=== PATIENT | male | born 1950 | race Caucasian/White ===

== ENCOUNTER 2016-11-10 09:44 | Emergency (ER) | payer BC ==
[~2016-11-10] VITALS: Ht 175.3 cm; Wt 91.6 kg
[~2016-11-10 09:44] MED LIST: ASPI81TA28 PO; CHOL100010 PO; CIPR-255 PO; CRG125 PO; CYCL10TA6 PO; ESOM1CAP34 PO; IBUP-1050 PO; METR-163 PO; NAPR220T40 PO; NRV/5 PO; NTRGSL/4 UT; OMEG10007 PO
[2016-11-10 09:48] VITALS: TEMP 36.6; Ht 175.3 cm; Wt 91.6 kg
[2016-11-10] MEDS ORDERED: OMEP20CA9 PO (10:35)
[2016-11-10] MEDS ORDERED: PSYL48.59 PO (10:35)
[2016-11-10] MEDS ORDERED: CHOL1TAB42 PO (10:35)
--- NOTE | 2016-11-10 10:54 | EMERGENCY ROOM VISIT NOTE ---
History Report prepared by Bunny: Radha Hernández Under the Supervision of: Dr. Brannon Gamez M.D. First contact with patient: 10:03 Chief Complaint: HIP PAIN Stated Complaint: PAIN-RIGHT HIP,BACK AND DOWN RIGHT LEG History of Present Illness The patient is a 66 year old male who presents to the Emergency Room with complaints of worsening intermittent right hip and groin pain starting 1 month ago. He rates his pain as a 9 or 10/10 in severity at worst. He presents to the ED today after his symptoms worsened in the past week. One month ago, he was sitting and bending down to put on shoes when he heard a crack from his lumbar spine. Since then he has been experiencing pain in his lower back. The pain sometimes radiates down his right leg to his ankle and sometimes to the right groin. He is unsure if the pain is hip related. The pain worsens with movement and walking. Resting in the supine position relieves his pain. Tylenol has not relieved his pain. He denies any weakness, numbness or incontinence. He has had a disc herniation in the past, but he states that the sensation is different from then. He did have steroid injections by Dr. Moreau 2 weeks ago, but the injections have not helped his current pain. He has had hernias in the past. He has a desk job at the [employer] Source of History: patient Onset: 1 month ago Position: pelvis (right hip) Symptom Intensity: 10/10 at worst Modifying Factors (Worsening): movement, other (walking) Associated Symptoms: + back pain (lower), No numbness, No weakness Note: Pt reports right leg pain. Pt denies incontinence. Review of Systems See HPI for pertinent positives & negatives. A total of 10 systems reviewed and were otherwise negative. Past Medical & Surgical Medical Problems: (1) Benign hypertension (2) BPH (benign prostatic hypertrophy) (3) eye surgery (4) Heart disease (5) Hyperlipidemia (6) knee surgery (7) Placement of stent (8) PVD (peripheral vascular disease) (9) Rhabdomyolysis (10) Tobacco abuse Surgical Problems: (1) S/P cardiac cath (2) S/P cataract surgery (3) Stented coronary artery Family History Cancer Diabetes mellitus FHx: gallbladder disease Heart disease Hypertension Lung disease Social History Smoking Status: Current Every Day Smoker Alcohol Use: occasionally Drug Use: none Marital Status: single Housing Status: lives with family Occupation Status: employed Current/Historical Medications Scheduled Amlodipine Besylate (Amlodipine Besylate), 5 MG PO DAILY Aspirin (Aspirin Ec), 81 MG PO DAILY Carvedilol (Carvedilol), 12.5 MG PO BID Cholecalciferol (Vitamin D), 5,000 UNIT PO DAILY Fish Oil (Jay-3), 1,200 MG PO BID Omeprazole (Prilosec), 20 MG PO DAILY Psyllium (Metamucil), 1 DOSE PO DAILY Scheduled PRN Tramadol (Ultram), 50-100 MG PO Q4H PRN for Pain Allergies Coded Allergies: Simvastatin (Verified Allergy, Mild, RHABDOMYOSIS, 04/11/16) Adhesives (Verified Allergy, Unknown, REDNESS,RASH, 04/11/16) HMG-CoA-R Inhibitors (Verified Allergy, Unknown, STATINS, 04/11/16) Niacin (Verified Allergy, Unknown, ANAPHYLAXIS, 04/11/16) Rofecoxib (Verified Adverse Reaction, Severe, GI BLEED, 04/11/16) Morphine (Verified Adverse Reaction, Mild, LIGHT-HEADED, 04/11/16) Codeine (Verified Adverse Reaction, Unknown, GI UPSET, 04/11/16) Physical Exam Vital Signs Date Time Temp Pulse Resp B/P Pulse Ox O2 Delivery O2 Flow Rate FiO2 11/10/16 14:54 71 16 138/69 92 Room Air 11/10/16 12:52 75 16 150/78 94 Room Air 11/10/16 11:40 73 16 150/80 94 Room Air 11/10/16 09:48 36.6 80 17 146/93 94 Room Air Physical Exam GENERAL: Patient is in no acute distress. HEENT: No acute trauma, normocephalic atraumatic, mucous membranes moist, no nasal congestion, no scleral icterus. NECK: No stridor, no adenopathy, no meningismus, trachea is midline. LUNGS: Clear to auscultation bilaterally, no wheeze, no rhonchi, breath sounds equal. HEART: Without murmurs gallops or rubs, regular rate and rhythm. ABDOMEN: Soft, nontender, bowel sounds positive, no hernias, no peritonitis. BACK: Tenderness to palpation of the right lateral lumbar muscles, no midline bony tenderness. GROIN: No obvious hernia by testing. EXTREMITIES: No edema or cellulitis to the right lower extremity. No adenopathy in the right groin. NEUROLOGIC: Oriented x 3, no acute motor or sensory deficits, no focal weakness. 2/4 patellar and Achilles reflexes bilaterally. SKIN: No rash, no jaundice, no diaphoresis. Medical Decision & Procedures ER Provider Diagnostic Interpretation: X-ray results as stated below per interpretation by me and the radiologist: RIGHT HIP UNILATERAL 2 VIEWS CLINICAL HISTORY: pain, right Right pain COMPARISON: None. DISCUSSION: Moderate degenerative change right hip. Minimal calcific trochanteric bursitis. No evidence for acetabular protrusion. There is no evidence for soft tissue swelling. IMPRESSION: Moderate degenerative change. Mild calcific trochanteric bursitis. No acute bony abnormality. Electronically signed by: Torsten Angulo M.D. 11/10/2016 11:37 AM Dictated Date/Time: 11/10/2016 11:36 AM LUMBAR SPINE 5 VIEWS HISTORY: Pain. Radiculopathy. pain, right side COMPARISON: None. FINDINGS: There is no fracture. No subluxation. Moderate degenerative disc change. No evidence for compression deformity. IMPRESSION: Moderate degenerative disc change. No acute bony abnormality. Electronically signed by: Torsten Angulo M.D. 11/10/2016 11:38 AM Dictated Date/Time: 11/10/2016 11:37 AM PELVIS 1 OR 2 VIEW ROUTINE CLINICAL HISTORY: right side pain pain COMPARISON: None. DISCUSSION: Moderate degenerative changes hips bilaterally. No evidence for acetabular protrusion. No acute bony abnormality. There is no evidence for soft tissue swelling. IMPRESSION: Moderate degenerative changes of the hips. No acute process. Electronically signed by: Torsten Angulo M.D. 11/10/2016 11:36 AM Dictated Date/Time: 11/10/2016 11:36 AM LUMBAR SPINE MRI HISTORY: Radiculopathy right back, leg and hip pain TECHNIQUE: Multiplanar multisequence MRI of the lumbar spine was performed without the use of contrast. COMPARISON: 02/04/2015 FINDINGS: For the purpose of the report the L5-S1 disc space will be located on axial image 27 of 30. Mild degenerative disc change throughout the entire lumbar region. Normal signal characteristics the vertebral bodies. 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 L1-L2: No significant central canal or neural foraminal narrowing. L2-L3: Minimal broad-based disc bulge with minimal impact anterior thecal sac. L3-L4: Mild broad-based disc bulge. Moderate narrowing of the neuroforamina bilaterally. Findings a slightly progressive compared to the prior exam. L4-L5: No significant central canal or neural foraminal narrowing. L5-S1: Central disc bulge with minimal impact anterior thecal sac. This is similar compared to the prior study. IMPRESSION: 1. Broad-based bulging disc L3-L4. Moderate narrowing of the neuroforamina bilaterally.. 2. This is slightly increased in prominence from the prior study. 3. Mild central disc bulge L5-S1 with a minimal broad-based disc bulge L2-L3. These findings are unchanged. 4. No major compromise of the spinal canal on this exam Electronically signed by: Torsten Angulo M.D. 11/10/2016 3:02 PM Dictated Date/Time: 11/10/2016 2:56 PM Laboratory Results 11/10/16 12:55 Red Blood Count 4.78, Mean Corpuscular Volume 88.9, Mean Corpuscular Hemoglobin 31.0, Mean Corpuscular Hemoglobin Concent 34.8, Mean Platelet Volume 10.7, Neutrophils (%) (Auto) 59.3, Lymphocytes (%) (Auto) 30.1, Monocytes (%) (Auto) 7.2, Eosinophils (%) (Auto) 2.9, Basophils (%) (Auto) 0.4, Neutrophils # (Auto) 5.70, Lymphocytes # (Auto) 2.90, Monocytes # (Auto) 0.69, Eosinophils # (Auto) 0.28, Basophils # (Auto) 0.04 11/10/16 12:55 Test 11/10/16 12:55 White Blood Count 9.62 K/uL (4.8-10.8) Red Blood Count 4.78 M/uL (4.7-6.1) Hemoglobin 14.8 g/dL (14.0-18.0) Hematocrit 42.5 % (42-52) Mean Corpuscular Volume 88.9 fL (80-100) Mean Corpuscular Hemoglobin 31.0 pg (25-34) Mean Corpuscular Hemoglobin Concent 34.8 g/dl (32-36) Platelet Count 232 K/uL (130-400) Mean Platelet Volume 10.7 fL (7.4-10.4) Neutrophils (%) (Auto) 59.3 % Lymphocytes (%) (Auto) 30.1 % Monocytes (%) (Auto) 7.2 % Eosinophils (%) (Auto) 2.9 % Basophils (%) (Auto) 0.4 % Neutrophils # (Auto) 5.70 K/uL (1.4-6.5) Lymphocytes # (Auto) 2.90 K/uL (1.2-3.4) Monocytes # (Auto) 0.69 K/uL (0.11-0.59) Eosinophils # (Auto) 0.28 K/uL (0-0.5) Basophils # (Auto) 0.04 K/uL (0-0.2) RDW Standard Deviation 44.6 fL (36.4-46.3) RDW Coefficient of Variation 13.6 % (11.5-14.5) Immature Granulocyte % (Auto) 0.1 % Immature Granulocyte # (Auto) 0.01 K/uL (0.00-0.02) Anion Gap 5.0 mmol/L (3-11) Est Creatinine Clear Calc Drug Dose 111.3 ml/min Estimated GFR () 112.0 Estimated GFR (Non- 96.7 BUN/Creatinine Ratio 15.5 (10-20) Calcium Level 9.7 mg/dl (8.5-10.1) Laboratory results reviewed by me. Medications Administered Medications (Trade) Dose Ordered Sig/Olena Route Start Time Stop Time Status Last Admin Dose Admin Ondansetron HCl (Zofran Inj) 4 mg NOW STAT IV 11/10/16 12:20 11/10/16 12:24 DC 11/10/16 12:54 4 MG Hydromorphone HCl (Dilaudid Inj) 0.5 mg NOW STAT IV 11/10/16 12:20 11/10/16 12:24 DC 11/10/16 12:54 0.5 MG Acetaminophen (Tylenol Tab) 1,000 mg NOW STAT PO 11/10/16 12:20 11/10/16 12:24 DC 11/10/16 12:55 1,000 MG ED Course 1005: At this time the patient was evaluated by the medical student. The students findings were discussed with me. We discussed a possible treatment plan and differential diagnoses for the patient. 1032: The patient was evaluated in room B4B. A complete history and physical exam was performed. 1216: I reevaluated the patient. He is in increased pain currently. He will be sent for an MRI. 1220: Acetaminophen 1000 mg PO, Dilaudid Inj 0.5 mg IV, Zofran Inj 4 mg IV. 1511: I reevaluated the patient. I discussed results and discharge instructions : he verbalized understanding and agreement. The patient is ready for discharge. 1515: I discussed the patient's case with Dr. Moreau, [facility]. He will see the patient on Sunday. He is agreeable to giving the patient tramadol. Medical Decision Differential diagnoses: nerve impingement, musculoskeletal pain, sciatica, arthritis, fracture, herniated lumbar disc. There is no leukocytosis or concerning anemia. No significant electrolyte abnormality or kidney failure. Films of the lumbar spine, pelvis and right hip were done, some arthritis was seen, no acute fractures. The patient initially was not in need of pain medication. He began having severe pain when he returned from x-ray. He received oral Tylenol. He required an IV, IV Dilaudid and IV Zofran were given. He was more comfortable after this medication regimen. Because of the severe pain, because of the radiating symptoms and escalating symptoms, an MRI of the lumbar spine was done. There was disc disease noted that was thought moderate in severity, there was no obvious large disc herniation requiring emergent surgical correction. I spoke with the patient's orthopedist, Dr. Moreau. The patient will be followed in the office in a few days, he may require repeat injections. The patient is being discharged on tramadol, he can continue Tylenol for pain. If things continue to worsen, he should report back to the ER. [place] Drug Monitoring Program Search Results: patient reviewed within database, no issues identified Consults Time Called: 1509 Consulting Physician: Dr. Moreau [facility] Returned Call: 1515 I discussed the patient's case with him. He will see the patient on Sunday. He is agreeable to giving the patient tramadol. Impression Primary Impression: Radicular pain of right lower back Additional Impression: Sciatica Scribe Attestation The scribe's documentation has been prepared under my direction and personally reviewed by me in its entirety. I confirm that the note above accurately reflects all work, treatment, procedures, and medical decision making performed by me. Departure Information Dispostion Home / Self-Care Prescriptions Tramadol (Ultram) 50 Mg Tab 50-100 MG PO Q4H Y for Pain, #25 TAB Prov: Brannon Gamez M.D. 11/10/16 Referrals RV. Meléndez MD (PCP) Forms HOME CARE DOCUMENTATION FORM, IMPORTANT VISIT INFORMATION Patient Instructions My [facility] Additional Instructions tramadol 1-2 tab every 4 hours for severe pain may use tylenol as before call Dr. Moreau on Sunday for an appt return for worsening symptoms or uncontrolled pain Problem Qualifiers
--- NOTE | 2016-11-10 11:38 | DIAGNOSTIC IMAGING REPORT ---
PELVIS 1 OR 2 VIEW ROUTINE CLINICAL HISTORY: right side pain pain COMPARISON: None. DISCUSSION: Moderate degenerative changes hips bilaterally. No evidence for acetabular protrusion. No acute bony abnormality. There is no evidence for soft tissue swelling. IMPRESSION: Moderate degenerative changes of the hips. No acute process. Electronically signed by: Torsten Angulo M.D. 11/10/2016 11:36 AM Dictated Date/Time: 11/10/2016 11:36 AM
--- NOTE | 2016-11-10 11:39 | DIAGNOSTIC IMAGING REPORT ---
RIGHT HIP UNILATERAL 2 VIEWS CLINICAL HISTORY: pain, right Right pain COMPARISON: None. DISCUSSION: Moderate degenerative change right hip. Minimal calcific trochanteric bursitis. No evidence for acetabular protrusion. There is no evidence for soft tissue swelling. IMPRESSION: Moderate degenerative change. Mild calcific trochanteric bursitis. No acute bony abnormality. Electronically signed by: Torsten Angulo M.D. 11/10/2016 11:37 AM Dictated Date/Time: 11/10/2016 11:36 AM
--- NOTE | 2016-11-10 11:40 | DIAGNOSTIC IMAGING REPORT ---
LUMBAR SPINE 5 VIEWS HISTORY: Pain. Radiculopathy. pain, right side COMPARISON: None. FINDINGS: There is no fracture. No subluxation. Moderate degenerative disc change. No evidence for compression deformity. IMPRESSION: Moderate degenerative disc change. No acute bony abnormality. Electronically signed by: Torsten Angulo M.D. 11/10/2016 11:38 AM Dictated Date/Time: 11/10/2016 11:37 AM
[2016-11-10] MEDS ORDERED: ONDANSETRON INJ 2 MG/ML 2 ML VIAL IV STA (12:20)
[2016-11-10] MEDS ORDERED: ACETAMINOPHEN 500 MG TAB PO STA (12:20)
[2016-11-10] MEDS ORDERED: HYDROmorphone INJ 2 MG/ML SYR/VIAL IV STA (12:20)
[2016-11-10] MEDS ORDERED: HYDROmorphone INJ 0.5 MG/0.5 ML SYR ONE (12:47)
[2016-11-10 13:07] LABS: HEMATOCRIT 42.5 % (42-52); MEAN CELL VOLUME 88.9 fL (80-100); MEAN CORPUSCULAR HGB CONC 34.8 g/dl (32-36); MEAN PLATELET VOLUME 10.7 fL (7.4-10.4); PLATELET COUNT 232 K/uL (130-400); RED BLOOD COUNT 4.78 M/uL (4.7-6.1); WHITE BLOOD COUNT 9.62 K/uL (4.8-10.8)
[2016-11-10 13:25] LABS: BUN/CREATININE RATIO 15.5 (10-20); CALCIUM 9.7 mg/dl (8.5-10.1); CREATININE 0.73 mg/dl (0.60-1.40)
[2016-11-10 13:39] LABS: BASO % 0.4 %; BASO ABS # 0.04 K/uL (0-0.2); COMPLETE YES; EOS % 2.9 %; IG% 0.1 %; LYMPH % 30.1 %; MONO % 7.2 %; NEUT % 59.3 %
--- NOTE | 2016-11-10 15:04 | DIAGNOSTIC IMAGING REPORT ---
LUMBAR SPINE MRI HISTORY: Radiculopathy right back, leg and hip pain TECHNIQUE: Multiplanar multisequence MRI of the lumbar spine was performed without the use of contrast. COMPARISON: 02/04/2015 FINDINGS: For the purpose of the report the L5-S1 disc space will be located on axial image 27 of 30. Mild degenerative disc change throughout the entire lumbar region. Normal signal characteristics the vertebral bodies. 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 L1-L2: No significant central canal or neural foraminal narrowing. L2-L3: Minimal broad-based disc bulge with minimal impact anterior thecal sac. L3-L4: Mild broad-based disc bulge. Moderate narrowing of the neuroforamina bilaterally. Findings a slightly progressive compared to the prior exam. L4-L5: No significant central canal or neural foraminal narrowing. L5-S1: Central disc bulge with minimal impact anterior thecal sac. This is similar compared to the prior study. IMPRESSION: 1. Broad-based bulging disc L3-L4. Moderate narrowing of the neuroforamina bilaterally.. 2. This is slightly increased in prominence from the prior study. 3. Mild central disc bulge L5-S1 with a minimal broad-based disc bulge L2-L3. These findings are unchanged. 4. No major compromise of the spinal canal on this exam Electronically signed by: Torsten Angulo M.D. 11/10/2016 3:02 PM Dictated Date/Time: 11/10/2016 2:56 PM
[2016-11-10] MEDS ORDERED: TRAM-10 PO (15:22)
[2016-11-10 15:45] VITALS: BP 157/90; PULSE 77; O2SAT 92
[2017-06-11] MEDS ORDERED: ANT25 PO (10:56)
[2017-07-11] MEDS ORDERED: NTRGSL/4 UT (16:10)
[2017-07-11] MEDS ORDERED: FLUT0.15 INTNAS (16:10)
[2017-07-11] MEDS ORDERED: IBUP-1050 PO (16:10)
[2017-07-11] MEDS ORDERED: ACET-1256 PO (16:10)
[2017-07-11] MEDS ORDERED: NAPR1TAB9 PO (16:10)
[2017-07-11] MEDS ORDERED: MULT-506 PO (16:10)
[2017-07-11] MEDS ORDERED: ASPI-391 PO (16:10)
== END 2016-11-10 15:46 | disposition home or self-care (01) ==
LOC: C.EDB 09:46
DX: M54.16 Radiculopathy, lumbar region (principal); M54.41 Lumbago with sciatica, right side; I10 Essential (primary) hypertension; E78.5 Hyperlipidemia, unspecified; I51.9 Heart disease, unspecified; I73.9 Peripheral vascular disease, unspecified; N40.0 Benign prostatic hyperplasia without lower urinary tract symptoms; F17.200 Nicotine dependence, unspecified, uncomplicated; Z98.61 Coronary angioplasty status; Z98.890 Other specified postprocedural states; Z79.82 Long term (current) use of aspirin; Z79.899 Other long term (current) drug therapy; Z88.5 Allergy status to narcotic agent; Z88.8 Allergy status to other drugs, medicaments and biological substances; Z91.09 Other allergy status, other than to drugs and biological substances; Z80.9 Family history of malignant neoplasm, unspecified; Z83.3 Family history of diabetes mellitus; Z83.79 Family history of other diseases of the digestive system; Z82.49 Family history of ischemic heart disease and other diseases of the circulatory system

== ENCOUNTER → 2017-05-18 | Outpatient (CLI) | payer BC ==
[~2017-05-18] MED LIST changes: -CHOL100010 PO; +CHOL1TAB42 PO; -CIPR-255 PO; -CYCL10TA6 PO; -ESOM1CAP34 PO; -IBUP-1050 PO; -METR-163 PO; -NAPR220T40 PO; -NTRGSL/4 UT; +OMEP20CA9 PO; +PSYL48.59 PO
[2017-05-18 16:41] LABS: BASO % 0.4 %; BASO ABS # 0.03 K/uL (0-0.2); COMPLETE YES; EOS % 4.1 %; IG% 0.2 %; LYMPH % 36.5 %; LYMPH ABS # 3.11 K/uL (1.2-3.4); MEAN CELL VOLUME 89.6 fL (80-100); MEAN CORPUSCULAR HEMOGLOBIN 31.3 pg (25-34); MEAN CORPUSCULAR HGB CONC 34.9 g/dl (32-36); MEAN PLATELET VOLUME 10.7 fL (7.4-10.4); MONO % 7.9 %; NEUT % 50.9 %; PLATELET COUNT 255 K/uL (130-400); WHITE BLOOD COUNT 8.51 K/uL (4.8-10.8)
[2017-05-18 17:01] LABS: BLOOD UREA NITROGEN 14 mg/dl (7-18); BUN/CREATININE RATIO 18.5 (10-20); CALCIUM 9.8 mg/dl (8.5-10.1); CARBON DIOXIDE 28 mmol/L (21-32); CHLORIDE 105 mmol/L (98-107); CREATININE 0.78 mg/dl (0.60-1.40); GLUCOSE 115 mg/dl (70-99); POTASSIUM 3.8 mmol/L (3.5-5.1); SODIUM 138 mmol/L (136-145)
[2017-05-18 17:07] LABS: ALB/GLOB RATIO 0.9 (0.9-2); ALKALINE PHOSPHATASE 90 U/L (45-117); ALT/SGPT 39 U/L (12-78); AST/SGOT 22 U/L (15-37)
== END | disposition home or self-care (01) ==
LOC: C.LAB1850 15:36
PROVIDERS: ATTEND Internal Medicine
DX: R19.7 Diarrhea, unspecified (principal)

== ENCOUNTER → 2017-05-29 | Outpatient (CLI) | payer BC ==
--- NOTE | 2017-05-29 16:09 | DIAGNOSTIC IMAGING REPORT ---
Left axillary ultrasound CLINICAL HISTORY: M79.89 Left axillary swelling Left [id number] COMPARISON STUDY: None. FINDINGS: No fluid collections or masses identified within the left axilla. There are 2 left axillary lymph nodes with the largest measuring 2.1 x 0.9 cm. This images a thin cortex and normal fatty hilum. IMPRESSION: No significant abnormality within the left axilla. There are 2 left axillary lymph nodes which do not be sonographic criteria for pathology. Electronically signed by: Steve Emanuel M.D. 05/29/2017 4:07 PM Dictated Date/Time: 05/29/2017 4:06 PM
== END | disposition home or self-care (01) ==
LOC: C.ULTR 15:36
PROVIDERS: ATTEND Internal Medicine
DX: M79.89 Other specified soft tissue disorders (principal)

== ENCOUNTER → 2017-07-12 | Outpatient (CLI) | payer BC ==
[~2017-07-12] MED LIST changes: +ACET-1256 PO; +ASPI-391 PO; +FLUT0.15 INTNAS; +IBUP-1050 PO; +MULT-506 PO; +NAPR1TAB9 PO; +NTRGSL/4 UT; -PSYL48.59 PO
--- NOTE | 2017-07-12 17:04 | DIAGNOSTIC IMAGING REPORT ---
TWO VIEW CHEST CLINICAL HISTORY: Atypical chest pain. FINDINGS: PA and lateral chest radiographs are compared to study dated 09/14/15. The cardiomediastinal silhouette is unremarkable. There is atherosclerotic calcification of the thoracic aorta. Chronic interstitial thickening is similar to previous. The lungs and pleural spaces are clear. There is no pneumothorax. The skeletal structures are osteopenic. Degenerative changes noted throughout the thoracic spine. IMPRESSION: No acute cardiopulmonary abnormality. Electronically signed by: Brannon Lugo M.D. 07/12/2017 5:03 PM Dictated Date/Time: 07/12/2017 5:02 PM
== END | disposition home or self-care (01) ==
LOC: C.RAD1850 16:41
PROVIDERS: ATTEND Internal Medicine
DX: I25.10 Atherosclerotic heart disease of native coronary artery without angina pectoris (principal); R07.89 Other chest pain

== ENCOUNTER 2017-07-26 05:05 | Day surgery (SDC) | payer BC ==
[2017-07-11 16:12] VITALS: BMI 29.0
[~2017-07-26] VITALS: Ht 175.3 cm; Wt 91.8 kg
[~2017-07-26 05:05] MED LIST changes: +FLUT0.15; -FLUT0.15 INTNAS
[2017-07-26 05:35] VITALS: BP 143/77; PULSE 74; TEMP 36.7; O2SAT 95; Ht 175.3 cm; Wt 91.8 kg
[2017-07-26] MEDS ORDERED: CEFAZOLIN 2000MG IV PUSH 10 ML IV SCH (06:00)
[2017-07-26] MEDS ORDERED: LACTATED RINGER'S 1000ML 1,000 ML IV SCH ×2 (06:00)
[2017-07-26] MEDS ORDERED: MIDAZOLAM HCL 1 MG/ML 2ML VIAL ONE (06:49)
[2017-07-26] MEDS ORDERED: FENTANYL CITRATE INJ 50 MCG/1 ML 2 ML VIAL ONE (06:49)
--- NOTE | 2017-07-26 06:53 | History & Physical Bridge Note ---
H&P Re-Evaluation Bridge Note: I have examined the patient, reviewed the History & Physical and in the interval since the performance of the History & Physical I have noted the following changes of clinical significance: No changes noted. no changes but patient has decided he wants both the umbilical and inguinal hernias repaired as well as sebaceous cyst on his chest wall excised. will proceed with all 3.
[2017-07-26] MEDS ORDERED: BUPIVACAINE/EPINEPHRINE 0.5% MPF 1:200,000 30 ML VIAL ONE (06:57)
[2017-07-26] MEDS ORDERED: ONDANSETRON INJ 2 MG/ML 2 ML VIAL IV PRN ×2 (07:15→09:00)
[2017-07-26] MEDS ORDERED: ATROPINE SULFATE 0.1 MG/ML 5ML SYR IV PRN (07:15)
[2017-07-26] MEDS ORDERED: PROPOFOL IV EMULSION 10 MG/ML 20 ML VIAL IV ONE (07:33)
[2017-07-26] MEDS ORDERED: EpHEDrine SULFATE 50MG/5ML SYR ONE (07:33)
[2017-07-26] MEDS ORDERED: LIDOCAINE HCL 2% 2 ML VIAL (20MG/ML) ONE (07:33)
[2017-07-26] MEDS ORDERED: DEXAMETHASONE SOD INJ 4 MG/ML VIAL ONE (07:33)
[2017-07-26] MEDS ORDERED: ONDANSETRON INJ 2 MG/ML 2 ML VIAL ONE (07:33)
[2017-07-26] MEDS ORDERED: VASOPRESSIN 20 UNIT/ML VIAL ONE (07:45)
[2017-07-26] MEDS ORDERED: SODIUM CHLORIDE 0.9% 1000ML 1,000 ML IV SCH (08:57)
[2017-07-26] MEDS ORDERED: HYDR-5688 PO (08:59)
[2017-07-26] MEDS ORDERED: HYDROCODONE/ACETAMIN 5/325MG TAB PO PRN ×2 (09:00)
--- NOTE | 2017-07-26 09:03 | Discharge Instructions ---
Discharge Instructions Date of Service Jul 26, 2017. Admission Reason for Admission: Left Inguinal Hernia, Umbilical Hernia Discharge Discharge Diagnosis / Problem: Left Inguinal Hernia, Umbilical Hernia Discharge Goals Goal(s): Decrease discomfort, Improve function Activity Recommendations Activity Limitations: as noted below Lifting Limitations: no more than 10 pounds Exercise/Sports Limitations: until after follow-up appointment May Resume Sexual Activity: after follow-up appointment Shower/Bathe: tomorrow Driving or Machine Use: resume 1 day after discharge . Instructions / Follow-Up Instructions / Follow-Up You have sutures that will need to be removed from the incision on your chest. Please call the office to schedule an appointment to have these sutures removed in 2 weeks. Please call the office with any questions or concerns at [phone]. Current Hospital Diet Patient's current hospital diet: Discharge Diet Recommended Diet: Regular Diet Procedures Procedures Performed: Open Left Inguinal Hernia Repair with Mesh, Open Umbilical Hernia Repair, Removal of Chest Wall Cyst Pending Studies Studies pending at discharge: yes List of pending studies: Pathology report. Medical Emergencies . Who to Call and When: Medical Emergencies: If at any time you feel your situation is an emergency, please call 911 immediately. . Non-Emergent Contact Non-Emergency issues call your: Primary Care Provider, Surgeon Call Non-Emergent contact if: temperature is above 101.5, your pain is not controlled, wound has increased drainage, wound has increased redness . "Provider Documentation" section prepared by Sharron King. . VTE Core Measure Inpt VTE Proph given/why not?: SCD's [place] Drug Monitoring Program Search Results: patient reviewed within database, no issues identified
[2017-07-26] MEDS ORDERED: ONDA4TAB65 PO (09:05)
--- NOTE | 2017-07-26 09:05 | [facility] Operative Report ---
Operative Report Operative Date Jul 26, 2017. Pre-Operative Diagnosis Left Inguinal Hernia, Umbilical Hernia, Chest Wall Cyst Post-Operative Diagnosis Same as preop Procedure(s) Performed Open Left Inguinal Hernia Repair with Mesh, Open Umbilical Hernia Repair, Removal of Chest Wall Cyst Surgeon Dr. Asif Client Advocate Surgeon(s) Sharron King PA-C Estimated Blood Loss 10 ml Findings direct and indirect LIH; 1 cm umbilical hernia;sebaceous cyst of chest wall. Specimens A. Chest Wall Cyst Anesthesia LMA Complication(s) None Disposition Recovery Room / PACU Description of Procedure After informed consent was obtained the patient was taken to the operating room and placed in the supine position. After successful placement of the laryngeal mask airway the left groin was shaved and the groin, abdomen, and lower chest wall were all sterilely prepped and draped. We began with the simple chest wall cyst. I used a 15 blade scalpel to make an elliptical incision around it. Electrocautery was used to take down the soft tissue around the cyst. I was able to come underneath it and remove it in one large piece without rupturing it. Wound was irrigated and closed using 3-0 Prolene in simple interrupted fashion. Sterile dressing was applied Attention then turned to the umbilical hernia. I made an infraumbilical curvilinear incision and carried this down through the soft tissue to the fascia. I used a [place] clamp to come above the umbilicus and take down the umbilical stalk with electrocautery. This revealed a small approximate 1-1.5 cm defect with some preperitoneal fat in it. We were able to excise and reduced the preperitoneal fat. Because of its small size I opted to not use mesh. I used #1 Ethibond in interrupted [id number] fashion to primarily close the defect with minimal tension. The Wound was then thoroughly irrigated. The umbilicus was reattached using 0 Vicryl. We then closed soft tissue using 3-0 Vicryl and skin with 4-0 Monocryl. Marcaine was injected around the area and skin glue used as a dressing Finally attention turned to the left inguinal hernia. I made an inguinal incision with a fresh blade and carried this down through the soft tissue to the external oblique aponeurosis which I skeletonized. I used a new scalpel to make a small incision and Metzenbaum scissors to extend this through the external ring as well as for several centimeters proximally. Once in the inguinal canal I was able to use blunt finger dissection to delineate the cord and cord structures. I elevated them with a [place] clamp and gently came around and teased the cord structures off the pubic bone using a blunt finger. A [place] drain was placed around it. There was an obvious direct defect which was easy to reduce. When we inspected the cord and cord structures we also found a small hernia sac with some fat within it. Once we skeletonized this back to its neck where with dunk it into the abdominal cavity. I used 0 Ethibond to primarily close the defect just to keep the hernia sac in place until we placed the mesh. A piece of keyhole polypropylene mesh was used as an onlay. It was secured distally to Semaj's ligament. It was secured laterally along the shelving portion of Poupart ligament and medially along the midline musculature. The "arms" of the mesh were wrapped around behind the cord and cord structures and again secured to underlying muscle using 0 Ethibond. At the end of the procedure the mesh was tension free and did not appear to be impinging on the cord structures. There was adequate hemostasis. We injected some Marcaine around the edges of the mesh for postoperative analgesia. A thorough irrigation was performed. The external oblique aponeurosis was closed using 2-0 Vicryl in a running fashion. Soft tissue was irrigated and closed using 3-0 Vicryl for the deep layers and 4-0 Monocryl for the skin. Some additional Marcaine was also injected around the skin. Dermabond glue was used as a dressing the patient was awaken x-rayed and transferred recovery in stable condition My physician's clinical assistant was present throughout the entire case. She assisted with exposure for all 3 components of the procedure. She helped with wound closure with all 3 components prepping of the patient as well as dressing placement. I attest to the content of the Intraoperative Record and any orders documented therein. Any exceptions are noted below.
[2017-07-26] MEDS: FENTANYL CITRATE INJ 50 MCG/1 ML 2 ML VIAL IV PRN ×8 (09:15→09:54)
[2017-07-26] MEDS ORDERED: HYDROCODONE/ACETAMIN 5/325MG TAB ONE (09:40)
[2017-07-26 10:20] VITALS: BP 132/66; PULSE 85; TEMP 36.3; O2SAT 94
--- NOTE | 2017-07-26 10:25 | Anesthesiology Progress Note ---
Anesthesia Post Op Note Date & Time Jul 26, 2017 at 10:25 Vital Signs Pain Intensity: 2 Vital Signs Past 12 Hours Date Time Temp Pulse Resp B/P (MAP) Pulse Ox O2 Delivery O2 Flow Rate FiO2 07/26/17 10:10 81 16 125/74 93 Nasal Cannula 07/26/17 10:05 81 20 124/69 93 Nasal Cannula 07/26/17 09:55 36.7 82 20 133/74 94 Nasal Cannula 2 07/26/17 09:45 82 20 133/74 94 Nasal Cannula 2 07/26/17 09:35 81 18 130/64 94 Nasal Cannula 2 07/26/17 09:25 80 19 130/69 95 Nasal Cannula 2 07/26/17 09:15 74 19 140/72 98 Oxymask 10 07/26/17 09:05 83 12 126/93 98 Oxymask 10 07/26/17 08:57 37.1 74 16 147/74 97 Oxymask 10 07/26/17 05:35 36.7 74 20 143/77 (99) 95 Room Air Notes Mental Status: alert / awake / arousable, participated in evaluation Pt Amnestic to Procedure: Yes Nausea / Vomiting: adequately controlled Pain: adequately controlled Airway Patency, RR, SpO2: stable & adequate BP & HR: stable & adequate Hydration State: stable & adequate Anesthetic Complications: no major complications apparent
[2017-07-26 10:50] VITALS: BP 133/64; PULSE 85; O2SAT 93
[2017-07-26 11:30] VITALS: BP 139/84; PULSE 84; TEMP 36.4; O2SAT 94
[2017-07-26] MEDS ORDERED: ONDA4TAB9 PO (18:45)
== END 2017-07-26 11:51 | disposition home or self-care (01) ==
LOC: C.ACU 05:05
PROVIDERS: ATTEND Surgery
DX: K40.90 Unilateral inguinal hernia, without obstruction or gangrene, not specified as recurrent (principal); K42.9 Umbilical hernia without obstruction or gangrene; L72.0 Epidermal cyst; I25.10 Atherosclerotic heart disease of native coronary artery without angina pectoris; I25.2 Old myocardial infarction; I10 Essential (primary) hypertension; E78.5 Hyperlipidemia, unspecified; I07.1 Rheumatic tricuspid insufficiency; K21.9 Gastro-esophageal reflux disease without esophagitis; D35.02 Benign neoplasm of left adrenal gland; N40.1 Benign prostatic hyperplasia with lower urinary tract symptoms; N13.8 Other obstructive and reflux uropathy; M51.26 Other intervertebral disc displacement, lumbar region; Z95.5 Presence of coronary angioplasty implant and graft; I67.9 Cerebrovascular disease, unspecified; K52.9 Noninfective gastroenteritis and colitis, unspecified; I70.219 Atherosclerosis of native arteries of extremities with intermittent claudication, unspecified extremity; R26.9 Unspecified abnormalities of gait and mobility; L71.9 Rosacea, unspecified; E55.9 Vitamin D deficiency, unspecified; F17.200 Nicotine dependence, unspecified, uncomplicated; Z79.82 Long term (current) use of aspirin; Z79.899 Other long term (current) drug therapy

== ENCOUNTER 2017-07-29 17:58 | Emergency (ER) | payer BC ==
[~2017-07-29] VITALS: Ht 175.3 cm; Wt 88.6 kg
[~2017-07-29 17:58] MED LIST changes: +HYDR-5688 PO; +ONDA4TAB65 PO; +ONDA4TAB9 PO
[2017-07-29 18:03] VITALS: TEMP 37.2; Ht 175.3 cm; Wt 88.6 kg
[2017-07-29] MEDS ORDERED: CEFTRIAXONE SOD INJ 1 GM ADDVIAL IV STA (18:26)
--- NOTE | 2017-07-29 18:30 | EMERGENCY ROOM VISIT NOTE ---
History Report prepared by Bunny: Raoul Loza Under the Supervision of: Dr. Solis Morgan M.D. First contact with patient: 18:06 Chief Complaint: WOUND INFECTION Stated Complaint: REDNESS INFECTION UNBILICUS LEFT History of Present Illness The patient is a 67 year old male who presents to the Emergency Room with complaints of a constant wound infection beginning tonight. The patient states that he had left inguinal hernia and umbilical hernia surgery performed by Dr. Asfi three days ago. He notes that the incision from his umbilical hernia surgery is beginning to look infected. He reports that he has noticed that the region around his belly button has been getting red and tender. The patient states that the nursing staff said that the wound was also oozing when he first came into the emergency department. He also complains of feeling hot, chills, pressure along the inside of his right leg, numbness over the surgery site, and dizziness. The patient states that although he felt hot today, he did not have a temperature when he checked earlier. He notes that he has been taking hydrocodone for pain, and that the medication has been making him dizzy. Pt denies LOC, headache, diaphoresis, visual changes, neck pain, chest pain, breathing difficulties, nausea, vomiting, abdominal pain, back pain, melena, hematochezia, urinary symptoms, weakness, lymphadenopathy, rash, leg swelling or other complaints. Source of History: patient Onset: tonight Position: other (umbilicus) Quality: other (infection, red, tender, and oozing) Timing: constant Associated Symptoms: + chills Note: He also complains of feeling hot, pressure along the inside of his right leg, numbness over the surgery site, and dizziness. Review of Systems See HPI for pertinent positives and negatives. A total of ten systems were reviewed and were otherwise negative. Past Medical & Surgical Medical Problems: (1) Benign hypertension (2) BPH (benign prostatic hypertrophy) (3) eye surgery (4) Heart disease (5) Hyperlipidemia (6) knee surgery (7) Left inguinal hernia (8) Placement of stent (9) PVD (peripheral vascular disease) (10) Rhabdomyolysis (11) Tobacco abuse (12) Umbilical hernia Surgical Problems: (1) S/P cardiac cath (2) S/P cataract surgery (3) Stented coronary artery Family History Cancer Diabetes mellitus FHx: gallbladder disease Heart disease Hypertension Lung disease Social History Smoking Status: Current Every Day Smoker Alcohol Use: occasionally Drug Use: none Marital Status: single Housing Status: lives with family Occupation Status: employed Current/Historical Medications Scheduled Acetaminophen (Tylenol), 1,000 MG PO PRN Amlodipine Besylate (Amlodipine Besylate), 5 MG PO HS Amlodipine Besylate (Norvasc), 1 TAB PO HS Aspirin (Aspirin Ec), 81 MG PO DAILY Cmpzlyg-Dwzzgtqxvcyxu-Vxlggvet (Excedrin Extra Strength), 2 TAB PO PRN Carvedilol (Carvedilol), 12.5 MG PO BID Cephalexin Monohydrate (Keflex), 500 MG PO QID Cholecalciferol (Vitamin D), 5,000 UNIT PO QAM Fish Oil ([place]-3), 1,200 MG PO BID Fluticasone Propionate (Nasal) (Flonase Allergy Relief), 2 SPRAYS NA DAILY Ibuprofen (Advil), 400 MG PO PRN Multivitamin (Multivitamin), 1 TAB PO QPM Naproxen (Aleve), 220-440 MG PO PRN Nitroglycerin (Nitrostat), 0.4 MG UT PRN Omeprazole (Prilosec), 20 MG PO QAM Sulfa/Trimethoprim (Bactrim Ds 800MG/160MG), 1 TAB PO BID Scheduled PRN Ondansetron (Ondansetron HCl), 1 TAB PO Q6H PRN for Nausea Allergies Coded Allergies: Simvastatin (Verified Allergy, Mild, RHABDOMOLYSIS, 07/29/17) TIFFANIE Inhibitors (Verified Allergy, Unknown, UNKNOWN, 07/29/17) Adhesives (Verified Allergy, Unknown, REDNESS,RASH, 07/29/17) HMG-CoA-R Inhibitors (Verified Allergy, Unknown, STATINS-RHABOMYOSIS, ) Meclizine (Verified Allergy, Unknown, UNKNOWN, 07/29/17) Niacin (Verified Allergy, Unknown, ANAPHYLAXIS, 07/29/17) Pantoprazole (Verified Allergy, Unknown, TOOK TOO MUCH-UNKNOWN EFFECT, ) Solifenacin (Verified Allergy, Unknown, DIDN'T WORK, 07/29/17) Rofecoxib (Verified Adverse Reaction, Severe, GI BLEED, 07/29/17) Morphine (Verified Adverse Reaction, Mild, LIGHT-HEADED, 07/29/17) Codeine (Verified Adverse Reaction, Unknown, GI UPSET, 07/29/17) Physical Exam Vital Signs Date Time Temp Pulse Resp B/P (MAP) Pulse Ox O2 Delivery O2 Flow Rate FiO2 07/29/17 19:45 65 20 134/72 94 Room Air 07/29/17 18:03 37.2 75 20 173/79 94 Room Air Physical Exam GENERAL: Awake, alert, well-appearing, in no distress HENT: Normocephalic, atraumatic. Oropharynx unremarkable. EYES: Normal conjunctiva. Sclera non-icteric. NECK: Supple. No nuchal rigidity. FROM. No JVD. RESPIRATORY: Clear to auscultation. CARDIAC: Regular rate, normal rhythm. Extremities warm and well perfused. Pulses equal. ABDOMEN: Soft, non-distended. No rebound or guarding. No masses. Umbilical surgical site, redness around incision site, moist in appearances, no dehiscence , erythema surrounding umbilicus that extends superiorly and to the right. Chest incision is clean, dry and intact, no sign of infection. Left inguinal incision is clean, dry, and intact, no redness. No generalized abdominal tenderness, tenderness only isolated to umbilical incision. RECTAL: Deferred. MUSCULOSKELETAL: Chest examination reveals no tenderness. There is no CVA tenderness to palpation. No joint edema. LOWER EXTREMITIES: Calves are equal size bilaterally and non-tender. No edema. No discoloration. NEURO: Normal sensorium. No sensory or motor deficits noted. SKIN: No rash or jaundice noted. Medical Decision & Procedures Laboratory Results 07/29/17 18:31 Red Blood Count 5.11, Mean Corpuscular Volume 92.6, Mean Corpuscular Hemoglobin 32.1, Mean Corpuscular Hemoglobin Concent 34.7, Mean Platelet Volume 11.3, Neutrophils (%) (Auto) 53.5, Lymphocytes (%) (Auto) 35.7, Monocytes (%) (Auto) 7.7, Eosinophils (%) (Auto) 2.3, Basophils (%) (Auto) 0.4, Neutrophils # (Auto) 4.57, Lymphocytes # (Auto) 3.05, Monocytes # (Auto) 0.66, Eosinophils # (Auto) 0.20, Basophils # (Auto) 0.03 07/29/17 19:00 Test 07/29/17 18:31 07/29/17 19:00 White Blood Count 8.54 K/uL (4.8-10.8) Red Blood Count 5.11 M/uL (4.7-6.1) Hemoglobin 16.4 g/dL (14.0-18.0) Hematocrit 47.3 % (42-52) Mean Corpuscular Volume 92.6 fL (80-100) Mean Corpuscular Hemoglobin 32.1 pg (25-34) Mean Corpuscular Hemoglobin Concent 34.7 g/dl (32-36) Platelet Count 269 K/uL (130-400) Mean Platelet Volume 11.3 fL (7.4-10.4) Neutrophils (%) (Auto) 53.5 % Lymphocytes (%) (Auto) 35.7 % Monocytes (%) (Auto) 7.7 % Eosinophils (%) (Auto) 2.3 % Basophils (%) (Auto) 0.4 % Neutrophils # (Auto) 4.57 K/uL (1.4-6.5) Lymphocytes # (Auto) 3.05 K/uL (1.2-3.4) Monocytes # (Auto) 0.66 K/uL (0.11-0.59) Eosinophils # (Auto) 0.20 K/uL (0-0.5) Basophils # (Auto) 0.03 K/uL (0-0.2) RDW Standard Deviation 45.7 fL (36.4-46.3) RDW Coefficient of Variation 13.5 % (11.5-14.5) Immature Granulocyte % (Auto) 0.4 % Immature Granulocyte # (Auto) 0.03 K/uL (0.00-0.02) Anion Gap 2.0 mmol/L (3-11) Est Creatinine Clear Calc Drug Dose 90.8 ml/min Estimated GFR () 103.5 Estimated GFR (Non- 89.3 BUN/Creatinine Ratio 18.8 (10-20) Calcium Level 9.2 mg/dl (8.5-10.1) Laboratory results reviewed by me Medications Administered Medications (Trade) Dose Ordered Sig/Olena Route Start Time Stop Time Status Last Admin Dose Admin Ceftriaxone Sodium (Rocephin Inj) 1 gm NOW STAT IV 07/29/17 18:26 07/29/17 18:28 DC 07/29/17 18:46 1 GM Acetaminophen/ Hydrocodone Bitart ([place] 5/325mg Home Pack) 1 homepack UD ONCE PO 07/29/17 19:45 07/29/17 19:46 DC 07/29/17 19:45 1 HOMEPACK Acetaminophen/ Hydrocodone Bitart ([place] 5/325mg Home Pack) 1 homepack UD ONCE PO 07/29/17 19:45 07/29/17 19:46 DC 07/29/17 19:45 1 HOMEPACK Trimethoprim/ Sulfamethoxazole (Sulfameth/ Trimeth Ds 800/ 160MG Home Pack) 1 homepack UD ONCE PO 07/29/17 19:45 07/29/17 19:46 DC 07/29/17 19:45 1 HOMEPACK Trimethoprim/ Sulfamethoxazole (Sulfameth/ Trimeth Ds 800/ 160MG Home Pack) 1 homepack UD ONCE PO 07/29/17 19:45 07/29/17 19:46 DC 07/29/17 19:45 1 HOMEPACK Cephalexin Monohydrate (Keflex 500MG Home Pack) 1 homepack NOW ONCE PO 07/29/17 19:45 07/29/17 19:46 DC 07/29/17 19:45 1 HOMEPACK ED Course 1808: The patient was evaluated in room B3. A complete history and physical exam was performed. 1825: Rocephin Inj 1gm IV 1850: I spoke to Dr. Chaidez - General Surgery, [facility] [place]. He said to follow up on the patient closely tonight. He also stated that the patient can follow up with him tomorrow if his symptoms worsen. 1927: I reevaluated and updated the patient. He is feeling well and is comfortable with the treatment plan. 1944: Cephalexin Monohydrate 1 homepack PO, Trimethoprim/Sulfamethoxazole 2 homepacks PO, Hydrocodone Bitart/Acetaminophen 2 homepacks PO given because of the holiday and all local pharmacies being closed 2003: I reevaluated the patient. Discussed results and discharge instructions: He verbalized understanding and agreement. The patient is ready for discharge. Medical Decision Prior records reviewed and summarized as above. Operative note reviewed. Triage Nursing notes reviewed and agree them. Additional history obtained from the family. The patient's history was concerning for swelling and redness of the skin. Differential diagnosis: Etiologies such as postoperative wound infection, cellulitis, DVT, necrotizing fasciitis, abscess, MRSA infection, dermatitis, drug eruption, as well as others were entertained.. Physical examination: The physical examination was consistent with cellulitis spreading from a very superficial wound infection. There is no dehiscence ER treatment provided: IV Rocephin On reassessment the patient felt better. Diagnostics interpreted by me: The labs revealed an unremarkable CBC and chemistry panel. Imaging studies: Deferred Consultation: A consultation was placed with the surgeon on-call, Dr. Chaidez. The case was discussed and diagnostics were reviewed. He agreed with the antibiotic treatment and for close follow-up in the office. If the patient worsens in anyway overnight or tomorrow he will come back to the Emergency Room as the clinic is closed secondary to the closest holiday. This appears to be isolated cellulitis originating from the umbilical surgical wound. The chest incision and left inguinal incision looked normal and are healing well. By the evaluation outlined above emergent etiologies such as abscess, necrotizing fasciitis, interabdominal process, as well as others were deemed relatively unlikely. The patient and significant other were informed about the findings as listed above. All questions were answered and they were pleased with the treatment. Return instructions were outlined and the patient was discharged in stable condition. Outpatient prescription management: [place] Home pack 2 Bactrim home pack 2 Keflex home pack Prescriptions for Bactrim and Keflex given Referral: The patient was referred back to general surgery and his primary care physician for follow-up in 2 to 3 days for a recheck of the current condition. Medication Reconcilliation Current Medication List: was personally reviewed by me Blood Pressure Screening Patient's blood pressure: Elevated blood pressure Blood pressure disposition: Referred to PCP Consults Time Called: 1844 Consulting Physician: Dr. Chaidez - General Surgery, [facility] [place] Returned Call: [phone] He said to follow up on the patient closely tonight. He also stated that the patient can follow up with him tomorrow if his symptoms worsen. Impression Primary Impression: Postoperative wound infection Scribe Attestation The scribe's documentation has been prepared under my direction and personally reviewed by me in its entirety. I confirm that the note above accurately reflects all work, treatment, procedures, and medical decision making performed by me. Departure Information Dispostion Home / Self-Care Prescriptions Cephalexin Monohydrate (Keflex) 500 Mg Cap 500 MG PO QID, #28 CAP Prov: Solis Morgan MD 07/29/17 Sulfa/Trimethoprim (Bactrim Ds 800MG/160MG) Tab 1 TAB PO BID, #14 TAB Prov: Solis Morgan MD 07/29/17 Referrals RV. Meléndez MD (PCP) Forms HOME CARE DOCUMENTATION FORM, IMPORTANT VISIT INFORMATION, WORK / SCHOOL INSTRUCTIONS Patient Instructions My [facility] Additional Instructions CELLULITIS INSTRUCTIONS: Start this prescription tomorrow afternoon with dinner- Cephalexin(Keflex) 500mg: Take one pill four times daily for 7 days for your skin infection. All antibiotics can cause diarrhea. If this occurs and you feel worse or it does not resolve in 1-2 days follow up with your doctor or return to the Emergency Department as this could be signs of serious underlying problems. Any medication can cause an allergic reaction, stop the pills immediately and return to the ER for rash, hives, breathing difficulties, or swelling. Start this medication tonight at bedtime- Trimethoprim-Sulfamethoxazole(Bactrim DS): Take one pill twice daily for 7 days for your skin infection. All antibiotics can cause diarrhea. If this occurs and you feel worse or it does not resolve in 1-2 days follow up with your doctor or return to the Emergency Department as this could be signs of serious underlying problems. Any medication can cause an allergic reaction, stop the pills immediately and return to the ER for rash, hives, breathing difficulties, or swelling. Hydrocodone/acetaminophen 5/325mg: Take 1-2 pills every 6 hours as needed for pain. Avoid additional Acetaminophen/Tylenol, alcohol, operating machinery or dangerous equipment, working on ladders or roofs, DRIVING, or situations where being under the influence may be dangerous. It is recommended to use a stool softener such as Colace, 100mg twice daily while taking this medication to avoid constipation. Ibuprofen(Motrin, Advil) may be used for fever or pain. Use 600mg every six hours as needed. Take with food. Avoid using more than 2400mg in a 24 hour period. Do not use 2400mg per day for more than three consecutive days without physician direction. Prolonged inappropriate use can lead to stomach upset or ulcers. Warm compresses to the affected area 4 times daily for 15-20 minutes. Rest and drink plenty of fluids. Continue current medications. Return to the ER for severe pain, persistent fevers, spreading redness, or any worsening of your condition. Follow up with your surgeon Sunday morning for a recheck of the current condition.
[2017-07-29 18:42] LABS: BASO % 0.4 %; BASO ABS # 0.03 K/uL (0-0.2); COMPLETE YES; EOS % 2.3 %; HEMATOCRIT 47.3 % (42-52); IG% 0.4 %; LYMPH % 35.7 %; LYMPH ABS # 3.05 K/uL (1.2-3.4); MEAN CELL VOLUME 92.6 fL (80-100); MEAN CORPUSCULAR HEMOGLOBIN 32.1 pg (25-34); MEAN CORPUSCULAR HGB CONC 34.7 g/dl (32-36); MEAN PLATELET VOLUME 11.3 fL (7.4-10.4); MONO % 7.7 %; NEUT % 53.5 %; PLATELET COUNT 269 K/uL (130-400); RED BLOOD COUNT 5.11 M/uL (4.7-6.1); WHITE BLOOD COUNT 8.54 K/uL (4.8-10.8)
[2017-07-29] MEDS ORDERED: ASPI81TA28 PO (18:45)
[2017-07-29] MEDS ORDERED: AMLO2.5T PO (18:45)
[2017-07-29 19:27] LABS: BUN/CREATININE RATIO 18.8 (10-20); CALCIUM 9.2 mg/dl (8.5-10.1); CREATININE 0.87 mg/dl (0.60-1.40)
[2017-07-29] MEDS ORDERED: CEPH500C PO (19:43)
[2017-07-29] MEDS ORDERED: SULF800T23 PO (19:43)
[2017-07-29 19:45] VITALS: BP 134/72; PULSE 65; O2SAT 94
[2017-07-29] MEDS ORDERED: NORCO 5/325MG HOME PACK PO ONE ×2 (19:45)
[2017-07-29] MEDS ORDERED: CEPHALEXIN 500MG HOME PACK 1 EA BTL PO ONE (19:45)
[2017-07-29] MEDS ORDERED: SEPTRA DS HOME PACK 1 EA VIAL PO ONE ×2 (19:45)
== END 2017-07-29 19:57 | disposition home or self-care (01) ==
LOC: C.EDB 17:59
DX: T81.4XXA Infection following a procedure, initial encounter (principal); Y84.8 Other medical procedures as the cause of abnormal reaction of the patient, or of later complication, without mention of misadventure at the time of the procedure; F17.200 Nicotine dependence, unspecified, uncomplicated; I10 Essential (primary) hypertension; N40.0 Benign prostatic hyperplasia without lower urinary tract symptoms; I73.9 Peripheral vascular disease, unspecified; Z95.5 Presence of coronary angioplasty implant and graft

== ENCOUNTER 2017-10-08 12:58 | Emergency (ER) | payer BC, OTHER ==
[~2017-10-08] VITALS: Ht 175.3 cm; Wt 89.0 kg
[~2017-10-08 12:58] MED LIST changes: +AMLO2.5T PO; +CEPH500C PO; -HYDR-5688 PO; -ONDA4TAB65 PO; +SULF800T23 PO
[2017-10-08 13:00] VITALS: TEMP 36.8; Ht 175.3 cm; Wt 89.0 kg
[2017-10-08] MEDS ORDERED: SODIUM CHLORIDE 0.9% 1000ML 1,000 ML IV STA (13:24)
--- NOTE | 2017-10-08 13:26 | EMERGENCY ROOM VISIT NOTE ---
History Report prepared by Bunny: Abhay Pennington Under the Supervision of: Dr. Jeb Xiong M.D. First contact with patient: 13:07 Chief Complaint: ALLERGIC REACTION Stated Complaint: REACTION TO MEDS Nursing Triage Summary: pt to the ED with concern for having a allergic reaction to lamasil. pt c/o vivid dreams, anxiety and feeling off in the head and sinus called pmd they told him to stop taking it History of Present Illness The patient is a 67 year old male who presents to the Emergency Room with complaints of intermittent headache that began Sunday, 2 days ago, after taking his first dosage of Lamisil. The patient states that he was prescribed the Lamisil secondary to a Toenail fungus. The patient states that since taking the medication he has has intermittent headaches as well as "dryness" in his sinuses. The patient does have a history of Rhabdomyolysis and is concerned that the medication could be causing this. Source of History: patient Onset: 2 days MEDICAL DRIVER Position: head Quality: other (Headache) Timing: intermittent Note: Dryness in his sinuses. Review of Systems See HPI for pertinent positives & negatives. A total of 10 systems reviewed and were otherwise negative. Past Medical & Surgical Medical Problems: (1) Benign hypertension (2) BPH (benign prostatic hypertrophy) (3) eye surgery (4) Heart disease (5) Hyperlipidemia (6) knee surgery (7) Left inguinal hernia (8) Placement of stent (9) PVD (peripheral vascular disease) (10) Rhabdomyolysis (11) Tobacco abuse (12) Umbilical hernia Surgical Problems: (1) S/P cardiac cath (2) S/P cataract surgery (3) Stented coronary artery Family History Cancer Diabetes mellitus FHx: gallbladder disease Heart disease Hypertension Lung disease Social History Smoking Status: Current Every Day Smoker Alcohol Use: occasionally Drug Use: none Marital Status: single Housing Status: lives with family Occupation Status: employed Current/Historical Medications Scheduled Acetaminophen (Tylenol), 1,000 MG PO PRN Amlodipine Besylate (Amlodipine Besylate), 5 MG PO HS Amlodipine Besylate (Norvasc), 1 TAB PO HS Aspirin (Aspirin Ec), 81 MG PO HS Wpbncqx-Gxpjjcmkwpquk-Matwrvxp (Excedrin Extra Strength), 2 TAB PO PRN Carvedilol (Carvedilol), 12.5 MG PO BID Cholecalciferol (Vitamin D), 5,000 UNIT PO QAM Cyanocobalamin (Vitamin B-12), 500 MCG PO QAM Fish Oil ([place]-3), 1,200 MG PO BID Ibuprofen (Advil), 400 MG PO PRN Naproxen (Aleve), 220-440 MG PO PRN Nitroglycerin (Nitrostat), 0.4 MG UT PRN Omeprazole (Prilosec), 20 MG PO QAM Allergies Coded Allergies: Simvastatin (Verified Allergy, Mild, RHABDOMOLYSIS, 10/08/17) TIFFANIE Inhibitors (Verified Allergy, Unknown, UNKNOWN, 10/08/17) Adhesives (Verified Allergy, Unknown, REDNESS,RASH, 10/08/17) HMG-CoA-R Inhibitors (Verified Allergy, Unknown, STATINS-RHABOMYOSIS, ) Meclizine (Verified Allergy, Unknown, UNKNOWN, 10/08/17) Niacin (Verified Allergy, Unknown, ANAPHYLAXIS, 10/08/17) Pantoprazole (Verified Allergy, Unknown, TOOK TOO MUCH-UNKNOWN EFFECT, 10/08) Solifenacin (Verified Allergy, Unknown, DIDN'T WORK, 10/08/17) Rofecoxib (Verified Adverse Reaction, Severe, GI BLEED, 10/08/17) Morphine (Verified Adverse Reaction, Mild, LIGHT-HEADED, 10/08/17) Codeine (Verified Adverse Reaction, Unknown, GI UPSET, 10/08/17) Physical Exam Vital Signs Date Time Temp Pulse Resp B/P (MAP) Pulse Ox O2 Delivery O2 Flow Rate FiO2 10/08/17 14:08 71 10/08/17 14:07 77 18 157/75 97 Room Air 10/08/17 13:00 36.8 79 20 182/90 96 Room Air Physical Exam GENERAL: Awake, alert, well-appearing, in no acute distress HENT: Normocephalic, atraumatic. Oropharynx unremarkable. EYES: Normal conjunctiva. Sclera non-icteric. NECK: Supple. No nuchal rigidity. FROM. No JVD. RESPIRATORY: Clear to auscultation. CARDIAC: Regular rate, normal rhythm. Extremities warm and well perfused. Pulses equal. ABDOMEN: Soft, non-distended. No tenderness to palpation. No rebound or guarding. No masses. RECTAL: Deferred. MUSCULOSKELETAL: Chest examination reveals no tenderness. The back is symmetrical on inspection without obvious abnormality. There is no CVA tenderness to palpation. No joint edema. LOWER EXTREMITIES: Calves are equal size bilaterally and non-tender. No edema. No discoloration. NEURO: Normal sensorium. No sensory or motor deficits noted. SKIN: No rash or jaundice noted. Medical Decision & Procedures Laboratory Results 10/08/17 13:40 Red Blood Count 4.75, Mean Corpuscular Volume 89.7, Mean Corpuscular Hemoglobin 31.4, Mean Corpuscular Hemoglobin Concent 35.0, Mean Platelet Volume 10.5, Neutrophils (%) (Auto) 52.4, Lymphocytes (%) (Auto) 34.5, Monocytes (%) (Auto) 9.7, Eosinophils (%) (Auto) 2.4, Basophils (%) (Auto) 0.5, Neutrophils # (Auto) 5.13, Lymphocytes # (Auto) 3.37, Monocytes # (Auto) 0.95, Eosinophils # (Auto) 0.23, Basophils # (Auto) 0.05 10/08/17 13:40 Test 10/08/17 13:40 White Blood Count 9.78 K/uL (4.8-10.8) Red Blood Count 4.75 M/uL (4.7-6.1) Hemoglobin 14.9 g/dL (14.0-18.0) Hematocrit 42.6 % (42-52) Mean Corpuscular Volume 89.7 fL (80-100) Mean Corpuscular Hemoglobin 31.4 pg (25-34) Mean Corpuscular Hemoglobin Concent 35.0 g/dl (32-36) Platelet Count 273 K/uL (130-400) Mean Platelet Volume 10.5 fL (7.4-10.4) Neutrophils (%) (Auto) 52.4 % Lymphocytes (%) (Auto) 34.5 % Monocytes (%) (Auto) 9.7 % Eosinophils (%) (Auto) 2.4 % Basophils (%) (Auto) 0.5 % Neutrophils # (Auto) 5.13 K/uL (1.4-6.5) Lymphocytes # (Auto) 3.37 K/uL (1.2-3.4) Monocytes # (Auto) 0.95 K/uL (0.11-0.59) Eosinophils # (Auto) 0.23 K/uL (0-0.5) Basophils # (Auto) 0.05 K/uL (0-0.2) RDW Standard Deviation 44.0 fL (36.4-46.3) RDW Coefficient of Variation 13.4 % (11.5-14.5) Immature Granulocyte % (Auto) 0.5 % Immature Granulocyte # (Auto) 0.05 K/uL (0.00-0.02) Anion Gap 6.0 mmol/L (3-11) Est Creatinine Clear Calc Drug Dose 95.3 ml/min Estimated GFR () 105.5 Estimated GFR (Non- 91.0 BUN/Creatinine Ratio 17.7 (10-20) Calcium Level 9.5 mg/dl (8.5-10.1) Total Bilirubin 0.2 mg/dl (0.2-1) Direct Bilirubin < 0.1 mg/dl (0-0.2) Aspartate Amino Transf (AST/SGOT) 18 U/L (15-37) Alanine Aminotransferase (ALT/SGPT) 37 U/L (12-78) Alkaline Phosphatase 91 U/L (45-117) Total Creatine Kinase 38 U/L (39-308) Total Protein 7.3 gm/dl (6.4-8.2) Albumin 3.3 gm/dl (3.4-5.0) Lipase 291 U/L (73-393) Labs reviewed by ED physician. Medications Administered Medications (Trade) Dose Ordered Sig/Olena Route Start Time Stop Time Status Last Admin Dose Admin Sodium Chloride 1,000 ml @ 999 mls/hr Q1H1M STAT IV 10/08/17 13:24 10/08/17 14:24 DC 10/08/17 14:07 999 MLS/HR ED Course 1318: Past medical records reviewed. The patient was evaluated in room A2. A complete history and physical examination was performed. 1324: Ordered Sodium Chloride 1000 mL @ 999 mL/hr IV. 1451: Upon reexamination the patient is resting in bed. I discussed results and treatment plan with the patient. He verbalizes agreement and understanding. The patient is ready for discharge. Medical Decision Differential diagnosis: Etiologies such as allergic reaction, anaphylaxis, urticaria, Wheeler-Michael syndrome, toxic epidermal necrolysis, erythema multiforme, cellulitis, as well as others were entertained. This is a 67-year-old male who presents emergency department over concerns about a medication he recently started. The patient is concerned he may be in rhabdomyolysis as he has had this before and in addition is also worried about a liver profile. I will note that the patient is well in appearance and has no evidence of meningitis encephalitis on examination. His laboratory work shows he is not rhabdomyolysis. He has a normal red blood cell white blood cell count normal liver profile. Based on these findings I feel the patient is well enough to be discharged home follow-up with his primary care physician. Patient was in agreement with the treatment plan. Medication Reconcilliation Current Medication List: was personally reviewed by me Blood Pressure Screening Patient's blood pressure: Elevated blood pressure Blood pressure disposition: Referred to PCP Impression Primary Impression: Adverse reaction to drug Scribe Attestation The scribe's documentation has been prepared under my direction and personally reviewed by me in its entirety. I confirm that the note above accurately reflects all work, treatment, procedures, and medical decision making performed by me. Departure Information Dispostion Home / Self-Care Referrals RV. Meléndez MD (PCP) Forms HOME CARE DOCUMENTATION FORM, IMPORTANT VISIT INFORMATION Patient Instructions My [facility] Additional Instructions STOP taking Lamisil Follow up with Dr Chatman's office You have been examined and treated today on an emergency basis only. This is not a substitute for, or an effort to provide, complete comprehensive medical care. It is impossible to recognize and treat all injuries or illnesses in a single emergency department visit. It is therefore important that you follow up closely with Dr Chatman. Call as soon as possible for an appointment. Thank you for your time and consideration. I look forward to speaking with you again soon. Please don't hesitate to call us if you have any questions. Problem Qualifiers Primary Impression: Adverse reaction to drug Encounter type: initial encounter Qualified Codes: T88.7XXA - Unspecified adverse effect of drug or medicament, initial encounter
[2017-10-08 13:52] LABS: BASO % 0.5 %; BASO ABS # 0.05 K/uL (0-0.2); EOS % 2.4 %; EOS ABS # 0.23 K/uL (0-0.5); HEMATOCRIT 42.6 % (42-52); HEMOGLOBIN 14.9 g/dL (14.0-18.0); IG# 0.05 K/uL (0.00-0.02); LYMPH % 34.5 %; LYMPH ABS # 3.37 K/uL (1.2-3.4); MEAN CELL VOLUME 89.7 fL (80-100); MEAN CORPUSCULAR HEMOGLOBIN 31.4 pg (25-34); MEAN PLATELET VOLUME 10.5 fL (7.4-10.4); MONO % 9.7 %; MONO ABS # 0.95 K/uL (0.11-0.59); NEUT % 52.4 %; NEUT ABS # 5.13 K/uL (1.4-6.5); PLATELET COUNT 273 K/uL (130-400); RED CELL DISTRIBUTION WIDTH CV 13.4 % (11.5-14.5); WHITE BLOOD COUNT 9.78 K/uL (4.8-10.8)
[2017-10-08] MEDS ORDERED: CYAN500T PO (14:00)
[2017-10-08 14:07] VITALS: BP 157/75; O2SAT 97
[2017-10-08 14:08] VITALS: PULSE 71
[2017-10-08 14:16] LABS: ALBUMIN 3.3 gm/dl (3.4-5.0); ALT/SGPT 37 U/L (12-78); AST/SGOT 18 U/L (15-37); BLOOD UREA NITROGEN 15 mg/dl (7-18); CALCIUM 9.5 mg/dl (8.5-10.1); CARBON DIOXIDE 29 mmol/L (21-32); CREATININE 0.83 mg/dl (0.60-1.40); GLUCOSE 145 mg/dl (70-99); LIPASE 291 U/L (73-393); POTASSIUM 3.9 mmol/L (3.5-5.1); SODIUM 136 mmol/L (136-145)
[2017-10-08 14:19] LABS: ALKALINE PHOSPHATASE 91 U/L (45-117); TOTAL PROTEIN 7.3 gm/dl (6.4-8.2)
== END 2017-10-08 15:25 | disposition home or self-care (01) ==
LOC: C.EDB 13:00 → C.EDA 15:25
DX: T36.7X5A Adverse effect of antifungal antibiotics, systemically used, initial encounter (principal); R51 Headache; X58.XXXA Exposure to other specified factors, initial encounter; I10 Essential (primary) hypertension; I51.9 Heart disease, unspecified; F17.200 Nicotine dependence, unspecified, uncomplicated; Z95.5 Presence of coronary angioplasty implant and graft

== ENCOUNTER 2019-02-13 10:37 | Observation (INO) ==
[2019-02-13 10:57] LABS: Basophils # (auto) 0.01 K/uL (0-0.2); Basophils % (auto) 0.1 %; Eosinophils % (auto) 1.1 %; Hematocrit (blood only) 43.6 % (42-52); Immature Granulocytes # (auto) 0.03 K/uL (0.00-0.02); Immature Granulocytes % (auto) 0.3 %; Lymphocytes # (auto) 3.01 K/uL (1.2-3.4); Mean Corpuscular Hgb Conc 34.4 g/dL (32-36); Mean Corpuscular Volume 91.4 fL (80-100); Mean Platelet Volume 10.8 fL (7.4-10.4); Monocytes # (auto) 0.87 K/uL (0.11-0.59); Monocytes % (auto) 9.8 %; Neutrophils # (auto) 4.84 K/uL (1.4-6.5); Neutrophils % (auto) 54.7 %; Platelet Count 264 K/uL (130-400); RDW Standard Deviation 46.8 fL (36.4-46.3); Red Blood Count 4.77 M/uL (4.7-6.1); White Blood Count 8.86 K/uL (4.8-10.8)
[2019-02-13 11:08] LABS: INR 0.9 (0.9-1.1); Partial Thromboplastin Ratio 0.9; Partial Thromboplastin Time 23.6 Seconds (21.0-31.0); Prothrombin Time 9.6 Seconds (9.0-12.0)
[2019-02-13 11:16] LABS: Alanine Aminotransferase 48 U/L (12-78); Albumin Level 3.6 gm/dl (3.4-5.0); Aspartate Aminotransferase 17 U/L (15-37); BUN Creatinine Ratio 19.4 (10-20); Blood Urea Nitrogen 15 mg/dl (7-18); Calcium 9.4 mg/dl (8.5-10.1); Carbon Dioxide 31 mmol/L (21-32); Chloride 104 mmol/L (98-107); Creatinine Clr Calc Pharmacy 97.5 ml/min; Est GFR (African American) 106.9; Est GFR (Non-African American) 92.3; Glucose 98 mg/dl (70-99); Potassium 3.8 mmol/L (3.5-5.1); Sodium 137 mmol/L (136-145)
[2019-02-13 11:20] LABS: Albumin Globulin Ratio 0.9 (0.9-2); Alkaline Phosphatase 82 U/L (45-117); Bilirubin,Total 0.4 mg/dl (0.2-1); Total Protein 7.6 gm/dl (6.4-8.2); Troponin I < 0.015 ng/ml (0-0.045)
--- NOTE | 2019-02-13 11:47 | XRay Report ---
XR chest 1V portable CLINICAL HISTORY: mid chest pain COMPARISON STUDY: Chest radiograph November 13, 2015. FINDINGS: Lung volumes are normal. Lungs are clear. There is no pneumothorax or pleural effusion. Car diac size is normal. Mediastinal contours are normal. There is no evidence for pulmonary edema. IMPRESSION: No acute cardiopulmonary findings. Electronically signed by: Vasu Crane M.D. 02/13/2019 11:46 AM
[2019-02-13 12:36] LABS: Magnesium 2.2 mg/dl (1.8-2.4); Phosphorus 2.4 mg/dl (2.5-4.9)
--- NOTE | 2019-02-13 13:17 | Emergency Department Note ---
Entered by Mary Lagos acting as a scribe for History of Present Illness General Chief complaint: Chest Pain Stated complaint: sob Time Seen by Provider: 02/13/19 11:33 Source: patient Mode of arrival: EMS Limitations: no limitations History of Present Illness Onset (ago): hour(s) 3 Location: chest Radiation: non-radiation Pain Consistency: + intermittent Quality: + sharp Relieved By: + medication (Aspirin) Exacerbated By: + none Associated symptoms: no diaphoresis, no shortness of breath and no other (- lightheadedness) Treatments prior to arrival: aspirin The patient is a 68 year old male who presents to the ED with complaints of chest pain. He was brought to the ED via EMS. This morning around 0900, while working on his deck, he experienced several intermittent sharp pains in his chest, so he called EMS. He denies his symptoms feeling like his prior heart attacks. He denies any lightheadedness, diaphoresis or shortness of breath. Palpation does not worsen his pain. He was given Aspirin in the field. He does have cardiac stents in place and is supposed to get stents placed in his legs next week by Dr. Randle of [facility] for a history of PVD. His last stent was placed between 2009 and 2011. Home Medications Home Medications Medication Instructions Recorded Confirmed Type acetaminophen 1,000 mg PO DIRECTED PRN 01/14/19 02/13/19 History amlodipine 5 mg PO QPM 01/14/19 02/13/19 History aspirin [Aspirin Low Dose] 81 mg PO QAM 01/14/19 02/13/19 History nnqfdsw-esdphgdgemmqc-hwcjqdkt 2 tab PO DIRECTED PRN 01/14/19 02/13/19 History [Excedrin Extra Strength] carvedilol 12.5 mg PO BID 01/14/19 02/13/19 History cholecalciferol (vitamin D3) 5,000 unit PO DAILY 01/14/19 02/13/19 History [Vitamin D3] naproxen sodium 220 - 440 mg PO UD PRN 01/14/19 02/13/19 History nitroglycerin 0.4 mg SUBLINGUAL DIRECTED PRN 01/14/19 02/13/19 History omega-3 fatty acids-fish oil [Fish 1 cap PO BID 01/14/19 02/13/19 History Oil] omeprazole 20 mg PO QAM 01/14/19 02/13/19 History cyanocobalamin (vitamin B-12) 1,000 mcg PO DAILY 01/18/19 02/13/19 History [Vitamin B-12] ibuprofen 400 mg PO Q6H PRN 01/18/19 02/13/19 History cilostazol 100 mg PO BID 02/13/19 02/13/19 History Allergies Allergy/AdvReac Type Severity Reaction Status Date / Time simvastatin Allergy Mild RHABDOMOLYS Verified 02/13/19 11:45 IS TIFFANIE Inhibitors Allergy Unknown UNKNOWN Verified 02/13/19 11:45 adhesive Allergy Unknown REDNESS,CHARITY Verified 02/13/19 11:45 H meclizine Allergy Unknown UNKNOWN Verified 02/13/19 11:45 niacin Allergy Unknown ANAPHYLAXIS Verified 02/13/19 11:45 pantoprazole Allergy Unknown TOOK TOO Verified 02/13/19 11:45 MUCH-UNKNOWN EFFECT solifenacin Allergy Unknown DIDN'T WORK Verified 02/13/19 11:45 rofecoxib AdvReac Severe GI BLEED Verified 02/13/19 11:45 morphine AdvReac Mild LIGHT-HEADE Verified 02/13/19 11:45 D codeine AdvReac Unknown GI UPSET Verified 02/13/19 11:45 HMG-CoA-R Inhibitors Allergy Unknown STATINS-RHA Uncoded 02/13/19 11:45 BOMYOSIS Past Med/Surg History Medical History BPH (benign prostatic hypertrophy) (Chronic) PVD (peripheral vascular disease) (Chronic) Tobacco abuse (Chronic) 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) Fatigue (Acute) Low back pain (Acute) Degenerative disc disease, cervical (Acute) Lightheadedness (Resolved) Colitis (Acute) Chest pain (Resolved) Chest pain (Resolved) Chest pain (Resolved) Disequilibrium (Resolved) Lumbar paraspinal muscle spasm (Resolved) Proctitis (Resolved) Weakness (Resolved) Surgical History History of percutaneous coronary intervention Family History Other No pertinent family history Social History Preferred Language: Bahamian Communication Ability: Effective Medical Asst Required: No Beliefs That Will Affect Care: None marital status: Current Living Situation: Spouse current occupational status: retired Other Information That Helps Us Care for You: No Feels Safe at Home: Yes Safety Concerns: Feels Safe At This Time Smoking Status: Current every day smoker Tobacco Type: cigarettes packs per day: 1 Do You Dip or Chew Tobacco: No Second Hand Exposure: No Tobacco Cessation Education Requested by Patient: No Hx Alcohol Use: Yes Hx Substance Use: No Review of Systems See HPI for pertinent positives & negatives. and A total of 10 systems reviewed and were otherwise negative Physical Exam Vital Signs Vital Signs - 24 hr 02/13/19 10:47 02/13/19 12:16 02/13/19 13:10 Temperature 36.7 C Temperature Source Oral Sepsis Recent Fever Within 48 Hours No Sepsis New/Unexplained Change in Mental Status No Sepsis Action Taken by Nursing No Action Required Pulse Rate 72 Pulse Rate [Right Finger] 64 75 Pulse Rhythm Regular Pulse Rhythm [Right Finger] Regular Pulse Strength Normal Pulse Strength [Right Finger] Normal Respiratory Rate 18 18 18 Respiratory Effort / Characteristics Non-Labored Non-Labored Respiratory Depth Normal Normal Respiratory Pattern Regular Regular Blood Pressure 156/78 H Blood Pressure [Right Arm] 156/78 H 149/81 H Blood Pressure Mean 104 Blood Pressure Mean [Right Arm] 104 103 Blood Pressure Position Sitting Pulse Oximetry 98 95 98 Oxygen Delivery Method Room Air GENERAL: Awake, alert, well-appearing, in no distress HENT: Normocephalic, atraumatic. Oropharynx with dry mucous membranes and otherwise unremarkable. EYES: Normal conjunctiva. Sclera non-icteric. NECK: Supple. No nuchal rigidity. FROM. No JVD. RESPIRATORY: CTAB. CARDIAC: Regular rate, normal rhythm. Extremities warm and well perfused. Pulses equal. ABDOMEN: Soft, non-distended. No tenderness to palpation. No rebound or guarding. No masses. RECTAL: Deferred. MUSCULOSKELETAL: Chest examination reveals no tenderness. The back is symmetrical on inspection without obvious abnormality. There is no CVA tenderness to palpation. No joint edema. LOWER EXTREMITIES: Calves are equal size bilaterally and non-tender. No edema. No discoloration. NEURO: Normal sensorium. No sensory or motor deficits noted. SKIN: No rash or jaundice noted. Course 1155: The patient was evaluated in room C4 and a complete history and physical were performed. 1255: I reevaluated the patient. He is resting comfortably. I discussed his results and my recommendation he remain in the hospital for further evaluation and management and he verbalized complete understanding and agreement. 1306: I discussed the patients case with Brannon Floyd PA-C, [facility] Hospitalist. The patient will be further evaluated. Consultations Consultation #1: I discussed the patients case with Brannon Floyd PA-C, [facility] Hospitalist. The patient will be further evaluated. Time: 13:06 Administered Medications Amlodipine Besylate (Norvasc) 5 mg PO QPM MATHEUS Stop: 03/15/19 20:59 Last Admin: 02/13/19 21:18 Dose: 5 mg Documented by: [id number] Cilostazol (Pletal) 100 mg PO BID MATHEUS Stop: 03/15/19 20:59 Last Admin: 02/13/19 19:38 Dose: Not Given Documented by: [id number] Fish Oil ([place]-3 (Purified Fish Oil)) 1 gm PO BID MATHEUS Stop: 03/15/19 20:59 Last Admin: 02/13/19 19:38 Dose: Not Given Documented by: [id number] Heparin Sodium (Porcine) (Heparin Sodium (Porcine)) 5,000 units SQ Q8 MATHEUS Stop: 03/15/19 21:59 Last Admin: 02/13/19 21:18 Dose: Not Given Documented by: [id number] Medical Decision Making Differential Diagnosis Differential diagnoses includes but is not limited to acute coronary syndrome, myocardial infarction, pericarditis, pulmonary embolus, aortic dissection, pneumonia, pneumothorax, musculoskeletal, shingles, esophageal. Medical Records Attestation: I reviewed the patient's medical records. Home Medications Current Medication List: was personally reviewed by me Laboratory Data Attestation: I reviewed the patient's lab results. Result diagrams: 02/13/19 10:26 02/13/19 10:26 Lab Results 02/13/19 02/13/19 02/13/19 Range/Units 10:26 10:26 10:26 WBC 8.86 (4.8-10.8) K/uL RBC 4.77 (4.7-6.1) M/uL Hgb 15.0 (14.0-18.0) g/dL Hct 43.6 (42-52) % MCV 91.4 (80-100) fL MCH 31.4 (25-34) pg MCHC 34.4 (32-36) g/dL RDW Std Deviation 46.8 H (36.4-46.3) fL RDW Coeff of Valentín 14.0 (11.5-14.5) % Plt Count 264 (130-400) K/uL MPV 10.8 H (7.4-10.4) fL Immature Gran % (Auto) 0.3 % Neut % (Auto) 54.7 % Lymph % (Auto) 34.0 % [place] % (Auto) 9.8 % Eos % (Auto) 1.1 % Baso % (Auto) 0.1 % Immature Gran # (Auto) 0.03 H (0.00-0.02) K/uL Neut # (Auto) 4.84 (1.4-6.5) K/uL Lymph # (Auto) 3.01 (1.2-3.4) K/uL [place] # (Auto) 0.87 H (0.11-0.59) K/uL Eos # (Auto) 0.10 (0-0.5) K/uL Baso # (Auto) 0.01 (0-0.2) K/uL PT 9.6 (9.0-12.0) Seconds INR 0.9 (0.9-1.1) APTT 23.6 (21.0-31.0) Seconds PTT Ratio 0.9 Sodium 137 (136-145) mmol/L Potassium 3.8 (3.5-5.1) mmol/L Chloride 104 (98-107) mmol/L Carbon Dioxide 31 (21-32) mmol/L Anion Gap 2.0 L (3-11) BUN 15 (7-18) mg/dl Creatinine 0.79 (0.6-1.4) mg/dl Est Cr Clr Drug Dosing 97.5 ml/min Est GFR ( Amer) 106.9 Est GFR (Non-Af Amer) 92.3 BUN/Creatinine Ratio 19.4 (10-20) Glucose 98 (70-99) mg/dl Calcium 9.4 (8.5-10.1) mg/dl Phosphorus (2.5-4.9) mg/dl Magnesium (1.8-2.4) mg/dl Total Bilirubin 0.4 (0.2-1) mg/dl AST 17 (15-37) U/L ALT 48 (12-78) U/L Alkaline Phosphatase 82 (45-117) U/L Troponin I < 0.015 (0-0.045) ng/ml Total Protein 7.6 (6.4-8.2) gm/dl Albumin 3.6 (3.4-5.0) gm/dl Globulin 4.0 (2.5-4.0) gm/dl Albumin/Globulin Ratio 0.9 (0.9-2) 02/13/19 Range/Units 10:26 WBC (4.8-10.8) K/uL RBC (4.7-6.1) M/uL Hgb (14.0-18.0) g/dL Hct (42-52) % MCV (80-100) fL MCH (25-34) pg MCHC (32-36) g/dL RDW Std Deviation (36.4-46.3) fL RDW Coeff of Valentín (11.5-14.5) % Plt Count (130-400) K/uL MPV (7.4-10.4) fL Immature Gran % (Auto) % Neut % (Auto) % Lymph % (Auto) % [place] % (Auto) % Eos % (Auto) % Baso % (Auto) % Immature Gran # (Auto) (0.00-0.02) K/uL Neut # (Auto) (1.4-6.5) K/uL Lymph # (Auto) (1.2-3.4) K/uL [place]asper # (Auto) (0.11-0.59) K/uL Eos # (Auto) (0-0.5) K/uL Baso # (Auto) (0-0.2) K/uL PT (9.0-12.0) Seconds INR (0.9-1.1) APTT (21.0-31.0) Seconds PTT Ratio Sodium (136-145) mmol/L Potassium (3.5-5.1) mmol/L Chloride (98-107) mmol/L Carbon Dioxide (21-32) mmol/L Anion Gap (3-11) BUN (7-18) mg/dl Creatinine (0.6-1.4) mg/dl Est Cr Clr Drug Dosing ml/min Est GFR ( Amer) Est GFR (Non-Af Amer) BUN/Creatinine Ratio (10-20) Glucose (70-99) mg/dl Calcium (8.5-10.1) mg/dl Phosphorus 2.4 L (2.5-4.9) mg/dl Magnesium 2.2 (1.8-2.4) mg/dl Total Bilirubin (0.2-1) mg/dl AST (15-37) U/L ALT (12-78) U/L Alkaline Phosphatase (45-117) U/L Troponin I (0-0.045) ng/ml Total Protein (6.4-8.2) gm/dl Albumin (3.4-5.0) gm/dl Globulin (2.5-4.0) gm/dl Albumin/Globulin Ratio (0.9-2) Imaging Data Radiologist's Impression: Radiology results as stated below per my review and the radiologist's interpretation: XR chest 1V portable CLINICAL HISTORY: mid chest pain COMPARISON STUDY: Chest radiograph November 13, 2015. FINDINGS: Lung volumes are normal. Lungs are clear. There is no pneumothorax or pleural effusion. Cardiac size is normal. Mediastinal contours are normal. There is no evidence for pulmonary edema. IMPRESSION: No acute cardiopulmonary findings. Electronically signed by: Vasu Crane M.D. 02/13/2019 11:46 AM ECG Data Attestation: I personally reviewed and interpreted this ECG as follows: Indication: chest pain Rate (beats per minute): 69 Rhythm: normal sinus Findings: + left axis deviation; no acute ischemic change Blood Pressure Blood Pressure Findings: Elevated blood pressure Blood Pressure Disposition: further management by hospitalist SIRI Narrative The patient is a pleasant 60-year-old gentleman with a past medical history of CAD status post PCI x3 who presents emergency department with 30 minutes of chest pain in the setting of exertion when he was working on his deck this morning at 9 AM per hpi. Patient reports no symptoms upon arrival. He took aspirin at home. On arrival patient is in no acute distress, afebrile stable vital signs. EKG without overt acute ischemia. Chest x-ray negative for acute process. WBC, H/H, platelets wnl. Chemistry without acidosis. LFTs unremarkable. Troponin negative. Denies any recent provocative testing. Heart score 5, moderate risk, reasonable to admit the patient for further cardiac rule out and possible nuclear stress test. Patient ultimately agreeable with plan. Case was discussed with Brannon BARFIELD PA-C, who evaluate the patient for admission. Impression & Plan Chest pain, exertional Discharge Plan Visit Data *Final* Discharge Date/Time: 02/13/19 16:04 Chief Complaint: Chest Pain Stated Complaint: sob ED Provider: Faheem Gurrola Discharge Problem: Chest pain, exertional Patient Disposition: Admitted As Inpatient Discharge Instructions Interventions: ED Discharge Assessment Last Done: 02/13/19 16:04 The scribe's documentation has been prepared under my direction and personally reviewed by me in its entirety. I confirm that the note above accurately reflects all work, treatment, procedures, and medical decision making performed by me.
--- NOTE | 2019-02-13 16:08 | History & Physical Report ---
Date of Service February 13, 2019 Assessment & Plan (1) Chest pain, exertional: History of CAD with previous stent placement EKG with no ST changes Troponin not elevated * Follow serial cardiac enzymes for total of 3 sets Admit to telemetry unit for observation Check repeat EKG in the morning No indication for cardiology consult at this time Patient is on multiple NSAIDs including Excedrin extra strength as well as naproxen * Continue PPI * No indication of hematemesis or melena or hematochezia * Consider GERD (2) CAD (coronary artery disease): Previous history of percutaneous coronary intervention with stent placement on 3 separate occasions Continue home meds including aspirin, carvedilol, amlodipine Hemodynamically stable Systolic blood pressure typically runs in the 140s and 150s per patient Following telemetry (3) History of rhabdomyolysis: Secondary to statin use Hold all statin medications (4) PVD (peripheral vascular disease): Scheduled for vascular procedure with Dr. Randle next week No current pain to extremities; no cyanosis; no mottling Continue Pletal 100 mg p.o. twice daily No indication for vascular consult at this time but will alert Dr. Randle the patient is admitted (5) Tobacco abuse: 1 pack per day tobacco abuser with cigarettes Smoking cessation consult placed Discussed need for abstention (6) GERD (gastroesophageal reflux disease): Continue PPI (7) DVT prophylaxis: No indication for chemical prophylaxis We will continue antiplatelet with Pletal Ambulate as tolerated Please refer to Dr. Jackson's addendum for further recommendations. History of Present Illness Attending: Dr. Mac Jackson This is a 68-year-old male with a history of CAD status post stent x3, peripheral vascular disease, peripheral arterial disease, hypertension, hyperlipidemia, BPH, daily tobacco abuse, history of rhabdomyolysis secondary to statin, chronic low back pain, degenerative cervical disc disease, colitis. The patient indicates that he has had exertional chest pain since this morning starting around 9 AM. He reports that he had been using a digging bar and felt a superficial type pain at the 2nd-3rd intercostal space in the midclavicular region on the left. He has some shortness of breath but is not sure if that is due to his daily smoking and deconditioning or if it is cardiac related. The patient states that he has a history of CAD with stents and this is similar in some ways to the previous pain. Due to his history he presented to the emergency room for evaluation to rule out new [place]. Troponins were negative and EKG showed no ST change. Patient is oxygenating well on room air. He has no focal pain to palpation of the chest but does state that the pain is transient. Chest x-ray shows no acute cardiopulmonary findings. Primary Care Provider: Florence Abraham MD Allergies Allergy/AdvReac Type Severity Reaction Status Date / Time simvastatin Allergy Mild RHABDOMOLYS Verified 02/13/19 11:45 IS TIFFANIE Inhibitors Allergy Unknown UNKNOWN Verified 02/13/19 11:45 adhesive Allergy Unknown REDNESS,CHARITY Verified 02/13/19 11:45 H meclizine Allergy Unknown UNKNOWN Verified 02/13/19 11:45 niacin Allergy Unknown ANAPHYLAXIS Verified 02/13/19 11:45 pantoprazole Allergy Unknown TOOK TOO Verified 02/13/19 11:45 MUCH-UNKNOWN EFFECT solifenacin Allergy Unknown DIDN'T WORK Verified 02/13/19 11:45 rofecoxib AdvReac Severe GI BLEED Verified 02/13/19 11:45 morphine AdvReac Mild LIGHT-HEADE Verified 02/13/19 11:45 D codeine AdvReac Unknown GI UPSET Verified 02/13/19 11:45 HMG-CoA-R Inhibitors Allergy Unknown STATINS-RHA Uncoded 02/13/19 11:45 BOMYOSIS Home Medications Home Medications Medication Instructions Recorded Confirmed Type acetaminophen 1,000 mg PO DIRECTED PRN 01/14/19 02/13/19 History amlodipine 5 mg PO QPM 01/14/19 02/13/19 History aspirin [Aspirin Low Dose] 81 mg PO QAM 01/14/19 02/13/19 History rcyqjps-bsqrbiwxwmxed-imdfkiyo 2 tab PO DIRECTED PRN 01/14/19 02/13/19 History [Excedrin Extra Strength] carvedilol 12.5 mg PO BID 01/14/19 02/13/19 History cholecalciferol (vitamin D3) 5,000 unit PO DAILY 01/14/19 02/13/19 History [Vitamin D3] naproxen sodium 220 - 440 mg PO UD PRN 01/14/19 02/13/19 History nitroglycerin 0.4 mg SUBLINGUAL DIRECTED PRN 01/14/19 02/13/19 History omega-3 fatty acids-fish oil [Fish 1 cap PO BID 01/14/19 02/13/19 History Oil] omeprazole 20 mg PO QAM 01/14/19 02/13/19 History cyanocobalamin (vitamin B-12) 1,000 mcg PO DAILY 01/18/19 02/13/19 History [Vitamin B-12] ibuprofen 400 mg PO Q6H PRN 01/18/19 02/13/19 History cilostazol 100 mg PO BID 02/13/19 02/13/19 History Past Med/Surg History Medical History BPH (benign prostatic hypertrophy) (Chronic) PVD (peripheral vascular disease) (Chronic) Tobacco abuse (Chronic) 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) Fatigue (Acute) Low back pain (Acute) Degenerative disc disease, cervical (Acute) Lightheadedness (Resolved) Colitis (Acute) Chest pain (Resolved) Chest pain (Resolved) Chest pain (Resolved) Disequilibrium (Resolved) Lumbar paraspinal muscle spasm (Resolved) Proctitis (Resolved) Weakness (Resolved) Surgical History History of percutaneous coronary intervention Family History Other No pertinent family history Social History Preferred Language: Brazilian marital status: current occupational status: retired Feels Safe at Home: Yes Smoking Status: Current every day smoker Tobacco Type: cigarettes packs per day: 1 Hx Alcohol Use: No Hx Substance Use: No Review of Systems Review of Systems: All systems reviewed & are unremarkable except as noted in HPI & below Physical Exam Physical Exam: GENERAL : No acute distress EYES: No icterus, gaze conjugate NOSE: No evidence of epistaxis MOUTH: No lesions or candidiasis NECK: Supple LUNGS: CTA B/L, no wheezes, rales or rhonchi HEART: Regular, rate controlled. No murmurs gallops or rubs ABDOMEN: Soft, NT, ND, BS Present EXTREMITIES: No LE edema, pedal pulses intact. NEURO: A&OX3.. No focal deficits Results & Data Vital Signs (Past 12 Hours) Vital Signs Temp Pulse Pulse Resp BP BP Pulse Ox 02/13/19 15:31 66 16 154/80 H 94 02/13/19 13:10 75 18 149/81 H 98 02/13/19 12:16 64 18 156/78 H 95 02/13/19 10:47 36.7 C 72 18 156/78 H 98 Laboratory Results 02/13/19 10:26 02/13/19 10:26 Abnormal Labs 02/13/19 02/13/19 02/13/19 10:26 10:26 10:26 RDW Std Deviation 46.8 H MPV 10.8 H Immature Gran # (Auto) 0.03 H [place] # (Auto) 0.87 H Anion Gap 2.0 L Phosphorus 2.4 L Diagnostic Findings XR chest 1V portable CLINICAL HISTORY: mid chest pain COMPARISON STUDY: Chest radiograph November 13, 2015. FINDINGS: Lung volumes are normal. Lungs are clear. There is no pneumothorax or pleural effusion. Cardiac size is normal. Mediastinal contours are normal. There is no evidence for pulmonary edema. IMPRESSION: No acute cardiopulmonary findings. Electronically signed by: Vasu Crane M.D. 02/13/2019 11:46 AM ECG Additional Comments: EKG 02/13/2019 10:45 AM Vent. rate 69 BPM DE interval 150 ms QRS duration 100 ms QT/QTc 376/402 ms P-R-T axes 11 -33 43 Normal sinus rhythm Left axis deviation Abnormal ECG When compared with ECG of 11-JUN-2017 07:48, Incomplete right bundle branch block is no longer Present Code Status & VTE Plan Code Status Level I full resuscitation VTE Prophylaxis Plan VTE Prophylaxis will be ordered: No Reason for no VTE drug order: Treatment not indicated Reason for no VTE mechanical prophylaxis: Treatment not indicated Supervising Physician Co-Signing Physician Notes I supervised Brannon Floyd PA-C on this admission. I interviewed and examined the patient independently of him. The plan is as written in the PA's note except for any following changes/exceptions: Episode of spontaneous chest pain without radiation and without any associated symptoms. Seems atypical. Will trend troponins and EKGs. Heart score of 4. Will get stress test in the morning. PG Care Time/CCT Total # of Minutes Spent Total Time Spent with Patient: Total time spent is greater than 50% in coordination of care (as documented) at patient's floor/unit and/or counseling patient:
[2019-02-13] MEDS ORDERED: ACETAMINOPHEN 500 MG TAB PO PRN (16:20)
[2019-02-13] MEDS ORDERED: NITROGLYCERIN SL 0.4 MG/TAB TAB SL PRN (16:20)
[2019-02-13] MEDS ORDERED: ALUMINUM/MAGNESIUM SUSP 30 ML UDC PO PRN (16:20)
[2019-02-13] MEDS ORDERED: POLYETHYLENE (MIRALAX) 17 GM PACK PO PRN (16:20)
[2019-02-13] MEDS ORDERED: MAGNESIUM HYDROXIDE SUSP 30 ML UDC PO PRN (16:20)
[2019-02-13] MEDS ORDERED: OMEGA-3 (PURIFIED FISH OIL) 1 GM CAP PO SCH (21:00)
[2019-02-13] MEDS ORDERED: CARVEDILOL 12.5 MG TAB PO SCH (21:00)
[2019-02-13] MEDS ORDERED: CILOSTAZOL 100 MG TAB PO SCH (21:00)
[2019-02-13] MEDS ORDERED: AMLODIPINE BESYLATE 5 MG TAB PO SCH (21:00)
[2019-02-13] MEDS: HEPARIN SOD 5,000 UNIT/0.5 ML VIAL SQ SCH (21:18)
[2019-02-14 03:38] LABS: Hematocrit (blood only) 42.6 % (42-52); Hemoglobin 14.5 g/dL (14.0-18.0); Mean Corpuscular Volume 92.4 fL (80-100); Mean Platelet Volume 10.2 fL (7.4-10.4); Platelet Count 219 K/uL (130-400); RDW Standard Deviation 47.5 fL (36.4-46.3); Red Blood Count 4.61 M/uL (4.7-6.1); White Blood Count 8.96 K/uL (4.8-10.8)
[2019-02-14 04:05] LABS: BUN Creatinine Ratio 21.3 (10-20); Blood Urea Nitrogen 18 mg/dl (7-18); Calcium 9.3 mg/dl (8.5-10.1); Carbon Dioxide 31 mmol/L (21-32); Chloride 105 mmol/L (98-107); Creatinine Clr Calc Pharmacy 89.6 ml/min; Est GFR (African American) 103.3; Est GFR (Non-African American) 89.1; Glucose 111 mg/dl (70-99); Potassium 4.1 mmol/L (3.5-5.1); Sodium 140 mmol/L (136-145)
[2019-02-14 04:10] LABS: Troponin I < 0.015 ng/ml (0-0.045)
[2019-02-14] MEDS: HEPARIN SOD 5,000 UNIT/0.5 ML VIAL SQ SCH (05:44)
[2019-02-14] MEDS ORDERED: CYANOCOBALAMIN 500 MCG TABLET (VITAMIN B-12) PO SCH (09:00)
[2019-02-14] MEDS ORDERED: CHOLECALCIFEROL 1,000 UNITS TAB PO SCH (09:00)
[2019-02-14] MEDS ORDERED: PANTOprazole 40 MG TAB PO SCH (09:00)
[2019-02-14] MEDS ORDERED: ASPIRIN 81 MG ECTAB PO SCH (09:00)
--- NOTE | 2019-02-14 16:29 | Discharge Summary ---
Date of Service February 14, 2019 Principal Diagnosis Chest pain, likely MSK Discharge Exam Constitutional WD/WN, vitals as above Eyes EOM intact bilaterally; no conjunctival abnormality ENMT external ear and nose normal, oropharynx normal Neck trachea midline, no thyromegaly normal visual inspection Respiratory normal respiratory effort, lungs clear to auscultation no respiratory distress Cardiovascular RRR, no murmur, no edema Gastrointestinal (Abdomen) Inspection/Auscultation: abdomen normal to inspection; abdomen not distended Musculoskeletal no cyanosis or clubbing, extremities motor strength 5/5 Skin no rashes, warm and dry Neurologic moves all extremities and awake Psychiatric Orientation: alert, oriented to person and cooperative Discharge Data Allergies Allergy/AdvReac Type Severity Reaction Status Date / Time simvastatin Allergy Mild RHABDOMOLYS Verified 02/13/19 11:45 IS TIFFANIE Inhibitors Allergy Unknown UNKNOWN Verified 02/13/19 11:45 adhesive Allergy Unknown REDNESS,CHARITY Verified 02/13/19 11:45 H meclizine Allergy Unknown UNKNOWN Verified 02/13/19 11:45 niacin Allergy Unknown ANAPHYLAXIS Verified 02/13/19 11:45 pantoprazole Allergy Unknown TOOK TOO Verified 02/13/19 11:45 MUCH-UNKNOWN EFFECT solifenacin Allergy Unknown DIDN'T WORK Verified 02/13/19 11:45 rofecoxib AdvReac Severe GI BLEED Verified 02/13/19 11:45 morphine AdvReac Mild LIGHT-HEADE Verified 02/13/19 11:45 D codeine AdvReac Unknown GI UPSET Verified 02/13/19 11:45 HMG-CoA-R Inhibitors Allergy Unknown STATINS-RHA Uncoded 02/13/19 11:45 BOMYOSIS Consultations 02/13/19 13:13 ED Decision to Admit Stat Hospital Course (1) Chest pain, exertional: History of CAD with previous stent placement EKG & troponins all negative. Patient wanted to go home prior to ordered stress test. - Will follow up with PCP or cardiology for stress test. - Likely MSK-related as it is worsened with palpation. (2) CAD (coronary artery disease): Previous history of percutaneous coronary intervention with stent placement on 3 separate occasions Continue home meds including aspirin, carvedilol, amlodipine Hemodynamically stable Systolic blood pressure typically runs in the 140s and 150s per patient Following telemetry (3) History of rhabdomyolysis: Secondary to statin use Hold all statin medications (4) PVD (peripheral vascular disease): Scheduled for vascular procedure with Dr. Randle next week No current pain to extremities; no cyanosis; no mottling Continue Pletal 100 mg p.o. twice daily No indication for vascular consult at this time but will alert Dr. Randle the pat ient is admitted (5) Tobacco abuse: 1 pack per day tobacco abuser with cigarettes Smoking cessation consult placed Discussed need for abstention (6) GERD (gastroesophageal reflux disease): Continue PPI (7) DVT prophylaxis: No indication for chemical prophylaxis We will continue antiplatelet with Pletal Ambulate as tolerated Please refer to Dr. Jackson's addendum for further recommendations. Total Time Total Time Spent Total Time Spent (In Minutes): 35 Discharge Plan Discharge Items Patient Disposition: Home - Self-Care Reason For Visit: CHEST PAIN Discharge Diagnosis: Chest pain; likely musculoskeletal Discharge Goals: Decrease discomfort and Diagnostic testing Activity: Resume your previous activity Non-emergency contact: Primary Care Provider and Supervisor Instrument Maintenance Call non-emergency contact if: your symptoms worsen and your pain is not controlled Follow-up/Referrals: Florence Abraham MD [Primary Care Provider] - Diet: Heart Healthy Addtl Provider Instructions: Please follow up with your PCP or back stayer to discuss a stress test as soon as able. Please return to the hospital or call if you have further chest pain that does not go away with nitro or acetaminophen. If you have chest pain and symptoms such as dizziness, lightheadedness, nausea, vomiting, shortness of breath, or palpitations, please call or go to the Emergency Department right away. If the chest pain starts to radiate to the arm or jaw, please contact your PCP or back stayer or go straight to the Emergency Department. Prescriptions: Continued carvedilol 12.5 mg tablet 12.5 mg PO BID RF: 0 amlodipine 5 mg tablet 5 mg PO QPM RF: 0 aspirin [Aspirin Low Dose] 81 mg Tablet,Delayed Release (Dr/Ec) 81 mg PO QAM RF: 0 acetaminophen 500 mg Tablet 1,000 mg PO DIRECTED PRN (Reason: Pain) RF: 0 naproxen sodium 220 mg Tablet 220 - 440 mg PO UD PRN (Reason: Pain) RF: 0 nitroglycerin 0.4 mg Tablet, Sublingual 0.4 mg sublingual DIRECTED PRN (Reason: Chest Pain) RF: 0 omeprazole 20 mg capsule,delayed release(DR/EC) 20 mg PO QAM RF: 0 Excedrin Extra Strength 250-250-65 mg Tablet 2 tab PO DIRECTED PRN (Reason: Headache) RF: 0 omega-3 fatty acids-fish oil [Fish Oil] 360-1,200 mg Capsule 1 cap PO BID RF: 0 cholecalciferol (vitamin D3) [Vitamin D3] 5,000 unit Tablet 5,000 unit PO DAILY RF: 0 cyanocobalamin (vitamin B-12) [Vitamin B-12] 1,000 mcg Tablet 1,000 mcg PO DAILY RF: 0 ibuprofen 200 mg Tablet 400 mg PO Q6H PRN (Reason: Pain) RF: 0 cilostazol 100 mg tablet 100 mg PO BID RF: 0 Stand-Alone Forms: Call Back Authorization, [facility] Discharge Orders: Discharge Order (Routine); Ordered 02/14/19 Ordered By: Mac Jackson Admission Data Admit Date/Time: 02/13/19 15:14 Attending Provider: Mac Jackson Admit Provider: Mac Jackson Primary Care Provider: Florence Abraham V. Other Providers: Calvin Dominguez Service: Telemetry Medical Other Interventions: Discharge Summary Assessment (RN) Last Done: 02/14/19 08:18 DC Date/Time DO NOT enter until pt leaves facility: 02/14/19 08:36
== END 2019-02-14 08:36 | disposition home or self-care (01) ==
LOC: ED 10:37 → 2N 10:37

== ENCOUNTER 2019-05-20 13:42 | Observation (INO) ==
[2019-05-20] MEDS ORDERED: ALUMINUM/MAGNESIUM SUSP 30 ML UDC PO STA (13:56)
[2019-05-20] MEDS ORDERED: SODIUM CHLORIDE 0.9% 500 ML IV SCH (14:00)
[2019-05-20 14:27] LABS: Basophils # (auto) 0.02 K/uL (0-0.2); Basophils % (auto) 0.3 %; Eosinophils # (auto) 0.32 K/uL (0-0.5); Eosinophils % (auto) 4.3 %; Hematocrit (blood only) 41.5 % (42-52); Immature Granulocytes # (auto) 0.01 K/uL (0.00-0.02); Immature Granulocytes % (auto) 0.1 %; Lymphocytes # (auto) 2.24 K/uL (1.2-3.4); Lymphocytes % (auto) 30.4 %; Mean Corpuscular Hemoglobin 31.1 pg (25-34); Mean Corpuscular Hgb Conc 33.7 g/dL (32-36); Mean Corpuscular Volume 92.2 fL (80-100); Mean Platelet Volume 10.5 fL (7.4-10.4); Monocytes # (auto) 0.49 K/uL (0.11-0.59); Monocytes % (auto) 6.7 %; Neutrophils # (auto) 4.28 K/uL (1.4-6.5); Neutrophils % (auto) 58.2 %; Platelet Count 228 K/uL (130-400); RDW Coefficient of Variation 13.3 % (11.5-14.5); RDW Standard Deviation 44.8 fL (36.4-46.3); White Blood Count 7.36 K/uL (4.8-10.8)
--- NOTE | 2019-05-20 14:27 | XRay Report ---
XR chest 1V portable CLINICAL HISTORY: 69 years-old Male presenting with Chest Pain, radiating discomfort down the arms, r epeated occurrence within the past few weeks. TECHNIQUE: Portable upright AP view of the chest was obtained. COMPARISON: 03/21/2019. FINDINGS: Cardiac silhouette top normal in size. Coronary artery stents within the right coronary artery sus[place] tomasz. Atherosclerosis of the aortic arch suspected. No focal opacity. No large effusion or pneumothora x. Degenerative changes of the thoracic spine. Upper abdomen normal. IMPRESSION: 1. No acute cardiopulmonary disease. Electronically signed by: Mike Meyers M.D. 05/20/2019 2:26 PM
[2019-05-20 14:38] LABS: INR 0.9 (0.9-1.1); Partial Thromboplastin Ratio 0.9; Partial Thromboplastin Time 25.3 Seconds (21.0-31.0); Prothrombin Time 9.7 Seconds (9.0-12.0)
[2019-05-20 14:50] LABS: Albumin Globulin Ratio 0.9 (0.9-2); Albumin Level 3.8 gm/dl (3.4-5.0); BUN Creatinine Ratio 17.5 (10-20); Bilirubin,Total 0.4 mg/dl (0.2-1); Calcium 9.5 mg/dl (8.5-10.1); Creatinine Clr Calc Pharmacy 89.8 ml/min; Est GFR (African American) 103.5; Est GFR (Non-African American) 89.3; Globulin 4.1 gm/dl (2.5-4.0); Total Protein 7.9 gm/dl (6.4-8.2)
[2019-05-20 14:52] LABS: Potassium 3.9 mmol/L (3.5-5.1)
[2019-05-20] MEDS ORDERED: fentaNYL citrate 100 MCG/2 ML VIAL IV STA (15:03)
[2019-05-20] MEDS ORDERED: ONDANSETRON INJ 2 MG/ML 2 ML VIAL IV STA (15:03)
[2019-05-20] MEDS ORDERED: NITROGLYCERIN SL 0.4 MG/TAB TAB SL STA (15:03)
--- NOTE | 2019-05-20 17:08 | History & Physical Report ---
Date of Service May 20, 2019 Assessment & Plan (1) Chest pain, exertional: Monitor EKG cardiac enzymes per protocol. Further plan per cardiology. (2) Hyperlipidemia: Continue home meds (3) Heart disease: Resume home medication. (4) Benign hypertension: We will monitor blood pressure. Continue home medications. (5) CAD (coronary artery disease): We will monitor the patient on telemetry floor. Continue aspirin. (6) GERD (gastroesophageal reflux disease): Continue PPI. (7) PVD (peripheral vascular disease): Status post stenting of right leg. Patient supposed to go for left leg stenting next month. Continue cilostazol Present on Admission?: Yes (8) Tobacco abuse: Smoking cessation advised. No intention to quit smoking order to use yancy christen patch. (9) Low back pain: (10) S/P coronary artery stent placement: History of Present Illness Precipitating factor Chief Complaint: Chest pain Primary Care Provider: NO PCP The patient is 69-year-old male with history of CAD, status post cardiac stenting. He is complaining of intermittent episodes of chest pain for last 3 days. No significant relieving or precipitating factor. He rates it as 8-9 out of 10 intensity. The first set of EKG cardiac enzymes is negative. He will be admitted under observation for further evaluation and management. No palpitation. No shortness of breath. No cough sputum hemoptysis. No swelling of the legs. He has history of PAD status post stenting of the right leg and continues to smoke. Allergies Allergy/AdvReac Type Severity Reaction Status Date / Time meclizine Allergy Severe UNKNOWN Verified 05/20/19 14:21 niacin Allergy Severe ANAPHYLAXIS Verified 05/20/19 14:21 TIFFANIE Inhibitors Allergy Intermediate UNKNOWN Verified 05/20/19 14:21 adhesive Allergy Mild REDNESS,CHARITY Verified 05/20/19 14:21 H simvastatin Allergy Mild RHABDOMOLYS Verified 05/20/19 14:21 IS pantoprazole Allergy Unknown TOOK TOO Verified 05/20/19 14:21 MUCH-UNKNOWN EFFECT codeine AdvReac Severe GI UPSET Verified 05/20/19 14:21 rofecoxib AdvReac Severe GI BLEED Verified 05/20/19 14:21 morphine AdvReac Mild LIGHT-HEADE Verified 05/20/19 14:21 D solifenacin AdvReac Unknown DIDN'T WORK Verified 05/20/19 14:21 terbinafine [From Lamisil] AdvReac Unknown Unknown Unverified 05/20/19 14:21 HMG-CoA-R Inhibitors Allergy Unknown STATINS-RHA Uncoded 05/20/19 14:21 BOMYOSIS Home Medications Home Medications Medication Instructions Recorded Confirmed Type amlodipine 5 mg PO QPM 01/14/19 05/20/19 History aspirin [Aspirin Low Dose] 81 mg PO QAM 01/14/19 05/20/19 History carvedilol 12.5 mg PO BID 01/14/19 05/20/19 History cholecalciferol (vitamin D3) 5,000 unit PO DAILY 01/14/19 05/20/19 History [Vitamin D3] nitroglycerin 0.4 mg SUBLINGUAL DIRECTED PRN 01/14/19 05/20/19 History omega-3 fatty acids-fish oil [Fish 1 cap PO BID 01/14/19 05/20/19 History Oil] omeprazole 20 mg PO QAM 01/14/19 05/20/19 History cyanocobalamin (vitamin B-12) 1,000 mcg PO DAILY 01/18/19 05/20/19 History [Vitamin B-12] cilostazol 100 mg tablet 100 mg PO BID 04/04/19 05/20/19 History evolocumab 140 mg/mL subcutaneous 140 mg SUBCUT UD ml 04/04/19 05/20/19 History pen injector fluticasone propionate 50 2 sprays INTRANASAL DAILY #1 gm 04/04/19 05/20/19 History mcg/actuation nasal spray,suspension multivitamin tablet 1 tab PO DAILY 04/04/19 05/20/19 History mupirocin 2 % topical ointment 1 appln TOP BID 04/04/19 05/20/19 History Past Med/Surg History Medical History BPH (benign prostatic hypertrophy) (Chronic) PVD (peripheral vascular disease) (Chronic) Tobacco abuse (Chronic) 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) Fatigue (Acute) Low back pain (Acute) Degenerative disc disease, cervical (Acute) Lightheadedness (Resolved) Colitis (Acute) Inguinal hernia (Acute) Umbilical hernia (Acute) Chest pain (Resolved) Chest pain (Resolved) Chest pain (Resolved) Disequilibrium (Resolved) Lumbar paraspinal muscle spasm (Resolved) Proctitis (Resolved) Weakness (Resolved) Surgical History History of arthroscopic knee surgery (Acute) bilateral knees History of percutaneous coronary intervention Family History Other No pertinent family history Social History Preferred Language: Moldovan Communication Ability: Effective 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 Beliefs That Will Affect Care: None marital status: Current Living Situation: Spouse current occupational status: retired Feels Safe at Home: Yes Smoking Status: Current every day smoker Tobacco Type: cigarettes ; packs per day: 1 ; Second Hand Exposure: No ; Hx Alcohol Use: Yes Hx Substance Use: No Review of Systems Review of Systems: All systems reviewed & are unremarkable except as noted in HPI & below Cardiovascular: + chest pain, + chest pain at rest and + radiating jaw, neck or arm pain Physical Exam Physical Exam: GENERAL : No acute distress EYES: No icterus, gaze conjugate NOSE: No evidence of epistaxis MOUTH: No lesions or candidiasis, mucosa moist NECK: Supple LUNGS: CTA B/L, no wheezes, rales or rhonchi HEART: Regular, rate controlled ABDOMEN: Soft, NT, ND, BS Present EXTREMITIES: No LE edema, pedal pulses intact NEURO: A&OX3 Results & Data Vital Signs (Past 12 Hours) Vital Signs Temp Pulse Resp BP Pulse Ox 05/20/19 16:10 67 20 97 05/20/19 16:00 69 17 121/53 L 92 05/20/19 15:50 64 14 95 05/20/19 15:40 83 18 95 05/20/19 15:30 78 17 149/81 H 93 05/20/19 15:20 83 16 95 05/20/19 15:10 75 16 98 05/20/19 15:00 79 24 180/86 H 98 05/20/19 14:50 81 33 H 98 05/20/19 14:40 75 19 98 05/20/19 14:37 83 20 98 05/20/19 14:32 84 20 176/84 H 98 05/20/19 13:44 97.7 F 80 18 194/84 H 95 Laboratory Results 05/20/19 14:17 05/20/19 14:17 05/20/19 05/20/19 05/20/19 Range/Units 14:22 14:17 14:17 WBC (4.8-10.8) K/uL RBC (4.7-6.1) M/uL Hgb (14.0-18.0) g/dL Hct (42-52) % MCV (80-100) fL MCH (25-34) pg MCHC (32-36) g/dL RDW Std Deviation (36.4-46.3) fL RDW Coeff of Valentín (11.5-14.5) % Plt Count (130-400) K/uL MPV (7.4-10.4) fL Immature Gran % (Auto) % Neut % (Auto) % Lymph % (Auto) % [place] % (Auto) % Eos % (Auto) % Baso % (Auto) % Immature Gran # (Auto) (0.00-0.02) K/uL Neut # (Auto) (1.4-6.5) K/uL Lymph # (Auto) (1.2-3.4) K/uL [place] # (Auto) (0.11-0.59) K/uL Eos # (Auto) (0-0.5) K/uL Baso # (Auto) (0-0.2) K/uL PT 9.7 (9.0-12.0) Seconds INR 0.9 (0.9-1.1) APTT 25.3 (21.0-31.0) Seconds PTT Ratio 0.9 Sodium 140 (136-145) mmol/L Potassium 3.9 (3.5-5.1) mmol/L Chloride 106 (98-107) mmol/L Carbon Dioxide 26 (21-32) mmol/L Anion Gap 8.0 (3-11) BUN 15 (7-18) mg/dl Creatinine 0.84 (0.6-1.4) mg/dl Est Cr Clr Drug Dosing 89.8 ml/min Est GFR ( Amer) 103.5 Est GFR (Non-Af Amer) 89.3 BUN/Creatinine Ratio 17.5 (10-20) Glucose 137 H (70-99) mg/dl Calcium 9.5 (8.5-10.1) mg/dl Total Bilirubin 0.4 (0.2-1) mg/dl AST 18 (15-37) U/L ALT 32 (12-78) U/L Alkaline Phosphatase 91 (45-117) U/L POC Troponin I < 0.03 (0-0.045) ng/ml Total Protein 7.9 (6.4-8.2) gm/dl Albumin 3.8 (3.4-5.0) gm/dl Globulin 4.1 H (2.5-4.0) gm/dl Albumin/Globulin Ratio 0.9 (0.9-2) Lipase 129 (73-393) U/L 05/20/19 Range/Units 14:17 WBC 7.36 (4.8-10.8) K/uL RBC 4.50 L (4.7-6.1) M/uL Hgb 14.0 (14.0-18.0) g/dL Hct 41.5 L (42-52) % MCV 92.2 (80-100) fL MCH 31.1 (25-34) pg MCHC 33.7 (32-36) g/dL RDW Std Deviation 44.8 (36.4-46.3) fL RDW Coeff of Valentín 13.3 (11.5-14.5) % Plt Count 228 (130-400) K/uL MPV 10.5 H (7.4-10.4) fL Immature Gran % (Auto) 0.1 % Neut % (Auto) 58.2 % Lymph % (Auto) 30.4 % [place] % (Auto) 6.7 % Eos % (Auto) 4.3 % Baso % (Auto) 0.3 % Immature Gran # (Auto) 0.01 (0.00-0.02) K/uL Neut # (Auto) 4.28 (1.4-6.5) K/uL Lymph # (Auto) 2.24 (1.2-3.4) K/uL [place] # (Auto) 0.49 (0.11-0.59) K/uL Eos # (Auto) 0.32 (0-0.5) K/uL Baso # (Auto) 0.02 (0-0.2) K/uL PT (9.0-12.0) Seconds INR (0.9-1.1) APTT (21.0-31.0) Seconds PTT Ratio Sodium (136-145) mmol/L Potassium (3.5-5.1) mmol/L Chloride (98-107) mmol/L Carbon Dioxide (21-32) mmol/L Anion Gap (3-11) BUN (7-18) mg/dl Creatinine (0.6-1.4) mg/dl Est Cr Clr Drug Dosing ml/min Est GFR ( Amer) Est GFR (Non-Af Amer) BUN/Creatinine Ratio (10-20) Glucose (70-99) mg/dl Calcium (8.5-10.1) mg/dl Total Bilirubin (0.2-1) mg/dl AST (15-37) U/L ALT (12-78) U/L Alkaline Phosphatase (45-117) U/L POC Troponin I (0-0.045) ng/ml Total Protein (6.4-8.2) gm/dl Albumin (3.4-5.0) gm/dl Globulin (2.5-4.0) gm/dl Albumin/Globulin Ratio (0.9-2) Lipase (73-393) U/L Diagnostic Findings XR chest 1V portable CLINICAL HISTORY: 69 years-old Male presenting with Chest Pain, radiating discomfort down the arms, repeated occurrence within the past few weeks. TECHNIQUE: Portable upright AP view of the chest was obtained. COMPARISON: 03/21/2019. FINDINGS: Cardiac silhouette top normal in size. Coronary artery stents within the right coronary artery suspected. Atherosclerosis of the aortic arch suspected. No focal opacity. No large effusion or pneumothorax. Degenerative changes of the thoracic spine. Upper abdomen normal. IMPRESSION: 1. No acute cardiopulmonary disease. Code Status & VTE Plan Code Status Full code PG Care Time/CCT Total # of Minutes Spent Total Time Spent with Patient: Total time spent is greater than 50% in coordination of care (as documented) at patient's floor/unit and/or counseling patient:
[2019-05-20] MEDS: carvediloL 12.5 MG TAB PO SCH (20:30)
[2019-05-20] MEDS: CILOSTAZOL 100 MG TAB PO SCH ×2 (20:30→20:38)
[2019-05-20] MEDS: AMLODIPINE BESYLATE 5 MG TAB PO SCH (20:30)
[2019-05-20] MEDS ORDERED: MUPIROCIN 2% OINT 22 GM TUBE TOP SCH (21:00)
[2019-05-20] MEDS ORDERED: OMEGA-3 (PURIFIED FISH OIL) 1 GM CAP PO SCH (21:00)
--- NOTE | 2019-05-20 21:28 | Emergency Department Note ---
Entered by Carlie Toledo acting as a scribe for Gurinder Díaz DO History of Present Illness General Chief complaint: Cardiac Assessment Stated complaint: BURNING/PAIN IN CHEST & PAIN DOWN BACK OF ARMS Source: patient Mode of arrival: ambulatory Limitations: no limitations History of Present Illness Onset (ago): day(s) 2 Location: chest Radiation: extremity (bilateral shoulder blades, bilateral arms) Pain Consistency: + constant Maximum Pain Intensity: 6 Current Pain Intensity: 2 Quality: + burning Relieved By: + none Exacerbated By: + other (Exertion) Associated symptoms: + other (+leg swelling) Treatments prior to arrival: aspirin (3 baby Aspirin) The patient is a 69 year old male who presents to the Emergency Room with complaints of intermittent chest pain starting 2 nights ago. The patient states that 2 nights ago he was about to lay down for bed when he suddenly started having burning in the center of his chest. He states that it radiates to his shoulder blades in his back and the backs of both his arms. He reports that he didnt think much of it, but it happened again last night when he went to go to bed. He states that he wasnt concerned till he got it an hour ago while exerting himself to open a 5 gallon bucket of sealer for his deck. The patient states that since he was exerting himself, he felt that he was concerned about his heart. He reports that he took 3 baby Aspirin and came in. He currently r ates his pain as a 2/10 in severity. He notes that he has 2 stents in his right leg and is scheduled on June 10 to have a stent placed in his left leg. He notes that he has not had a stress test in 8 years and last had a heart cath in 2007. The patient complains of leg swelling, but notes that it is normal for him. The patient denies leg pain, missing any of his medications, and taking Nitroglycerin. Home Medications Home Medications Medication Instructions Recorded Confirmed Type amlodipine 5 mg PO QPM 01/14/19 05/20/19 History aspirin [Aspirin Low Dose] 81 mg PO QAM 01/14/19 05/20/19 History carvedilol 12.5 mg PO BID 01/14/19 05/20/19 History cholecalciferol (vitamin D3) 5,000 unit PO DAILY 01/14/19 05/20/19 History [Vitamin D3] nitroglycerin 0.4 mg SUBLINGUAL DIRECTED PRN 01/14/19 05/20/19 History omega-3 fatty acids-fish oil [Fish 1 cap PO BID 01/14/19 05/20/19 History Oil] omeprazole 20 mg PO QAM 01/14/19 05/20/19 History cyanocobalamin (vitamin B-12) 1,000 mcg PO DAILY 01/18/19 05/20/19 History [Vitamin B-12] cilostazol 100 mg tablet 100 mg PO BID 04/04/19 05/20/19 History evolocumab 140 mg/mL subcutaneous 140 mg SUBCUT UD ml 04/04/19 05/20/19 History pen injector fluticasone propionate 50 2 sprays INTRANASAL DAILY #1 gm 04/04/19 05/20/19 History mcg/actuation nasal spray,suspension multivitamin tablet 1 tab PO DAILY 04/04/19 05/20/19 History mupirocin 2 % topical ointment 1 appln TOP BID 04/04/19 05/20/19 History Allergies Allergy/AdvReac Type Severity Reaction Status Date / Time meclizine Allergy Severe UNKNOWN Verified 05/20/19 14:21 niacin Allergy Severe ANAPHYLAXIS Verified 05/20/19 14:21 TIFFAINE Inhibitors Allergy Intermediate UNKNOWN Verified 05/20/19 14:21 adhesive Allergy Mild REDNESS,CHARITY Verified 05/20/19 14:21 H pantoprazole Allergy Unknown TOOK TOO Verified 05/20/19 14:21 MUCH-UNKNOWN EFFECT codeine AdvReac Severe GI UPSET Verified 05/20/19 14:21 rofecoxib AdvReac Severe GI BLEED Verified 05/20/19 14:21 morphine AdvReac Mild LIGHT-HEADE Verified 05/20/19 14:21 D simvastatin AdvReac Mild RHABDOMOLYS Verified 05/20/19 18:44 IS solifenacin AdvReac Unknown DIDN'T WORK Verified 05/20/19 14:21 terbinafine [From Lamisil] AdvReac Unknown Unknown Unverified 05/20/19 14:21 Past Med/Surg History Medical History BPH (benign prostatic hypertrophy) (Chronic) PVD (peripheral vascular disease) (Chronic) Tobacco abuse (Chronic) 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) Fatigue (Acute) Low back pain (Acute) Degenerative disc disease, cervical (Acute) Lightheadedness (Resolved) Colitis (Acute) Inguinal hernia (Acute) Umbilical hernia (Acute) Chest pain (Resolved) Chest pain (Resolved) Chest pain (Resolved) Disequilibrium (Resolved) Lumbar paraspinal muscle spasm (Resolved) Proctitis (Resolved) Weakness (Resolved) Surgical History History of arthroscopic knee surgery (Acute) bilateral knees History of percutaneous coronary intervention Family History Other No pertinent family history Social History Preferred Language: Polish Communication Ability: Effective Domestic Travel Consultant Required: No Beliefs That Will Affect Care: None marital status: Current Living Situation: Spouse current occupational status: retired Feels Safe at Home: Yes Smoking Status: Current every day smoker Tobacco Type: cigarettes ; packs per day: 1 ; Cigarettes Per Day: 20 ; Second Hand Exposure: No ; Hx Alcohol Use: Yes Hx Substance Use: No Review of Systems See HPI for pertinent positives & negatives. and A total of 10 systems reviewed and were otherwise negative Physical Exam Vital Signs Vital Signs - 24 hr 05/20/19 13:43 05/20/19 13:44 05/20/19 13:56 Temperature 36.5 C Temperature Source Oral Sepsis Recent Fever Within 48 Hours No Sepsis New/Unexplained Change in Mental Status No Sepsis Action Taken by Nursing No Action Required Pulse Rate 80 Pulse Rate from SpO2 Sensor Respiratory Rate 18 Respiratory Depth Normal Blood Pressure 194/84 H Blood Pressure Mean 120 Pulse Oximetry 95 Oxygen Delivery Method Room Air Room Air Room Air 05/20/19 14:32 05/20/19 14:37 05/20/19 14:40 Temperature Temperature Source Sepsis Recent Fever Within 48 Hours Sepsis New/Unexplained Change in Mental Status Sepsis Action Taken by Nursing Pulse Rate 84 83 75 Pulse Rate from SpO2 Sensor 82 83 74 Respiratory Rate 20 20 19 Respiratory Depth Blood Pressure 176/84 H Blood Pressure Mean 114 Pulse Oximetry 98 98 98 Oxygen Delivery Method 05/20/19 14:50 05/20/19 15:00 05/20/19 15:10 Temperature Temperature Source Sepsis Recent Fever Within 48 Hours Sepsis New/Unexplained Change in Mental Status Sepsis Action Taken by Nursing Pulse Rate 81 79 75 Pulse Rate from SpO2 Sensor 70 81 75 Respiratory Rate 33 H 24 16 Respiratory Depth Blood Pressure 180/86 H Blood Pressure Mean 117 Pulse Oximetry 98 98 98 Oxygen Delivery Method 05/20/19 15:20 05/20/19 15:30 05/20/19 15:40 Temperature Temperature Source Sepsis Recent Fever Within 48 Hours Sepsis New/Unexplained Change in Mental Status Sepsis Action Taken by Nursing Pulse Rate 83 78 83 Pulse Rate from SpO2 Sensor 82 78 83 Respiratory Rate 16 17 18 Respiratory Depth Blood Pressure 149/81 H Blood Pressure Mean 103 Pulse Oximetry 95 93 95 Oxygen Delivery Method 05/20/19 15:50 05/20/19 16:00 05/20/19 16:10 Temperature Temperature Source Sepsis Recent Fever Within 48 Hours Sepsis New/Unexplained Change in Mental Status Sepsis Action Taken by Nursing Pulse Rate 64 69 67 Pulse Rate from SpO2 Sensor 64 70 66 Respiratory Rate 14 17 20 Respiratory Depth Blood Pressure 121/53 L Blood Pressure Mean 75 Pulse Oximetry 95 92 97 Oxygen Delivery Method GENERAL: Patient is awake, alert, and in no acute distress. Patient is resting comfortably and showing no signs of anxiety EYES: The conjunctivae are clear. The pupils are round and reactive. EARS, NOSE, MOUTH AND THROAT: The nose is without any evidence of any deformity. Mucous membranes are moist.Tongue is midline NECK: The neck is nontender and supple. RESPIRATORY: Normal respiratory effort is noted. There is no evidence of wheezing rhonchi or rales to auscultation. CARDIOVASCULAR: Regular rate and rhythm noted. There no murmurs rubs or gallops normal S1 normal S2 GASTROINTESTINAL: The abdomen is soft. Bowel sounds are present in all quadrants. Abdomen is nontender. MUSCULOSKELETAL/EXTREMITIES: There is no evidence of gross deformity. Full range of motion is noted in the hips and shoulders. SKIN: There is no obvious evidence of any rash. Chronic venous stasis changes were noted. Skin is otherwise warm and dry. NEUROLOGIC: Patient is awake alert and oriented x3. Course 1355: Past medical records reviewed. The patient was evaluated in room B9. A c omplete history and physical exam was performed. 1500: The patient was found sitting up in bed, clutching his chest in pain. 1617: The patient has a heart score of 5. 1640: I discussed the patients case with Dr. Garcia, [facility]ist. The patient will be further evaluated. 1645: I reevaluated the patient. He is resting comfortably. I discussed his results and my recommendation he remain in the hospital for further evaluation and management and he is agreeable with the plan. Consultations Consultation #1: I discussed the patients case with Dr. Garcia, [facility] Hospitalist. The patient will be further evaluated. Time: 16:40 Administered Medications Amlodipine Besylate (Norvasc) 5 mg PO QPM MATHEUS Stop: 06/19/19 20:59 Last Admin: 05/20/19 20:30 Dose: 5 mg Documented by: [id number] Carvedilol (Coreg) 12.5 mg PO BID MATHEUS Stop: 06/19/19 20:59 Last Admin: 05/20/19 20:30 Dose: 12.5 mg Documented by: [id number] Cilostazol (Pletal) 100 mg PO BID MATHEUS Stop: 06/19/19 20:59 Last Admin: 05/20/19 20:38 Dose: Not Given Documented by: [id number] Discontinued Medications Al Hydrox/Mg Hydrox/Simethicone (Maalox) 30 ml PO NOW STA Stop: 05/20/19 13:57 Last Admin: 05/20/19 14:25 Dose: 30 ml Documented by: [id number] Fentanyl Citrate (Fentanyl Citrate) 50 mcg IV NOW STA Stop: 05/20/19 15:04 Last Admin: 05/20/19 15:18 Dose: 50 mcg Documented by: [id number] Sodium Chloride (Nss) 500 mls @ 999 mls/hr IV .Q31M MATHEUS Stop: 05/20/19 14:30 Last Infusion: 05/20/19 15:07 Dose: 0 mls/hr Documented by: [id number] Admin: 05/20/19 14:30 Dose: 999 mls/hr Documented by: [id number] Miscellaneous (Order Awaiting Action) 1 ea N/A DAILY MATHEUS Stop: 06/19/19 18:14 Last Admin: 05/20/19 19:45 Dose: Not Given Documented by: [id number] Nitroglycerin (Nitrostat) 0.4 mg SL NOW STA Stop: 05/20/19 15:04 Last Admin: 05/20/19 15:19 Dose: 0.4 mg Documented by: [id number] Ondansetron HCl (Zofran) 4 mg IV NOW STA Stop: 05/20/19 15:04 Last Admin: 05/20/19 15:20 Dose: 4 mg Documented by: [id number] Medical Decision Making Differential Diagnosis Differential diagnoses includes but is not limited to acute coronary syndrome, myocardial infarction, pericarditis, pulmonary embolus, aortic dissection, pneumonia, pneumothorax, musculoskeletal, shingles, esophageal. Medical Records Attestation: I reviewed the patient's medical records. Home Medications Current Medication List: was personally reviewed by me Laboratory Data Attestation: I reviewed the patient's lab results. Result diagrams: 05/20/19 14:17 05/20/19 14:17 Lab Results 05/20/19 05/20/19 05/20/19 Range/Units 14:17 14:17 14:17 WBC 7.36 (4.8-10.8) K/uL RBC 4.50 L (4.7-6.1) M/uL Hgb 14.0 (14.0-18.0) g/dL Hct 41.5 L (42-52) % MCV 92.2 (80-100) fL MCH 31.1 (25-34) pg MCHC 33.7 (32-36) g/dL RDW Std Deviation 44.8 (36.4-46.3) fL RDW Coeff of Valentín 13.3 (11.5-14.5) % Plt Count 228 (130-400) K/uL MPV 10.5 H (7.4-10.4) fL Immature Gran % (Auto) 0.1 % Neut % (Auto) 58.2 % Lymph % (Auto) 30.4 % [place] % (Auto) 6.7 % Eos % (Auto) 4.3 % Baso % (Auto) 0.3 % Immature Gran # (Auto) 0.01 (0.00-0.02) K/uL Neut # (Auto) 4.28 (1.4-6.5) K/uL Lymph # (Auto) 2.24 (1.2-3.4) K/uL [place] # (Auto) 0.49 (0.11-0.59) K/uL Eos # (Auto) 0.32 (0-0.5) K/uL Baso # (Auto) 0.02 (0-0.2) K/uL PT 9.7 (9.0-12.0) Seconds INR 0.9 (0.9-1.1) APTT 25.3 (21.0-31.0) Seconds PTT Ratio 0.9 Sodium 140 (136-145) mmol/L Potassium 3.9 (3.5-5.1) mmol/L Chloride 106 (98-107) mmol/L Carbon Dioxide 26 (21-32) mmol/L Anion Gap 8.0 (3-11) BUN 15 (7-18) mg/dl Creatinine 0.84 (0.6-1.4) mg/dl Est Cr Clr Drug Dosing 89.8 ml/min Est GFR ( Amer) 103.5 Est GFR (Non-Af Amer) 89.3 BUN/Creatinine Ratio 17.5 (10-20) Glucose 137 H (70-99) mg/dl Calcium 9.5 (8.5-10.1) mg/dl Total Bilirubin 0.4 (0.2-1) mg/dl AST 18 (15-37) U/L ALT 32 (12-78) U/L Alkaline Phosphatase 91 (45-117) U/L POC Troponin I (0-0.045) ng/ml Total Protein 7.9 (6.4-8.2) gm/dl Albumin 3.8 (3.4-5.0) gm/dl Globulin 4.1 H (2.5-4.0) gm/dl Albumin/Globulin Ratio 0.9 (0.9-2) Lipase 129 (73-393) U/L 05/20/ Range/Units 14:22 WBC (4.8-10.8) K/uL RBC (4.7-6.1) M/uL Hgb (14.0-18.0) g/dL Hct (42-52) % MCV (80-100) fL MCH (25-34) pg MCHC (32-36) g/dL RDW Std Deviation (36.4-46.3) fL RDW Coeff of Valentín (11.5-14.5) % Plt Count (130-400) K/uL MPV (7.4-10.4) fL Immature Gran % (Auto) % Neut % (Auto) % Lymph % (Auto) % [place] % (Auto) % Eos % (Auto) % Baso % (Auto) % Immature Gran # (Auto) (0.00-0.02) K/uL Neut # (Auto) (1.4-6.5) K/uL Lymph # (Auto) (1.2-3.4) K/uL [place] # (Auto) (0.11-0.59) K/uL Eos # (Auto) (0-0.5) K/uL Baso # (Auto) (0-0.2) K/uL PT (9.0-12.0) Seconds INR (0.9-1.1) APTT (21.0-31.0) Seconds PTT Ratio Sodium (136-145) mmol/L Potassium (3.5-5.1) mmol/L Chloride (98-107) mmol/L Carbon Dioxide (21-32) mmol/L Anion Gap (3-11) BUN (7-18) mg/dl Creatinine (0.6-1.4) mg/dl Est Cr Clr Drug Dosing ml/min Est GFR ( Amer) Est GFR (Non-Af Amer) BUN/Creatinine Ratio (10-20) Glucose (70-99) mg/dl Calcium (8.5-10.1) mg/dl Total Bilirubin (0.2-1) mg/dl AST (15-37) U/L ALT (12-78) U/L Alkaline Phosphatase (45-117) U/L POC Troponin I < 0.03 (0-0.045) ng/ml Total Protein (6.4-8.2) gm/dl Albumin (3.4-5.0) gm/dl Globulin (2.5-4.0) gm/dl Albumin/Globulin Ratio (0.9-2) Lipase (73-393) U/L Imaging Data Radiologist's Impression: Radiology results as stated below per my review and the radiologist's interpretation: XR chest 1V portable CLINICAL HISTORY: 69 years-old Male presenting with Chest Pain, radiating discomfort down the arms, repeated occurrence within the past few weeks. TECHNIQUE: Portable upright AP view of the chest was obtained. COMPARISON: 03/21/2019. FINDINGS: Cardiac silhouette top normal in size. Coronary artery stents within the right coronary artery suspected. Atherosclerosis of the aortic arch suspected. No focal opacity. No large effusion or pneumothorax. Degenerative changes of the thoracic spine. Upper abdomen normal. IMPRESSION: 1. No acute cardiopulmonary disease. Electronically signed by: Mike Meyers M.D. 05/20/2019 2:26 PM ECG Data Attestation: I personally reviewed and interpreted this ECG as follows: Indication: chest pain Rate (beats per minute): 73 Rhythm: normal sinus Findings: + other (No acute ST segments) Comparison ECG Date: from (02/14/2019) Change: no significant change MDM Narrative The patient is a 69-year-old male who presented to the emergency department for an evaluation of chest pain. The patient describes intermittent episodes of chest pain that has been having throughout the day. He initially started having no pattern to the pain but then started having with exertion. The patient has multiple risk factors and has a very elevated heart score. He has a history of cardiac stents but yet continues to smoke tobacco products. The patient's EKG shows no acute change from previous. His initial troponin was negative. Given the patient's elevated heart score I did discuss his case with the on-call [facility] hospitalist. They have agreed to evaluate the patient in the emergency department for further management disposition. I discussed patient's laboratory and radiographic studies with him. I also discussed the limitations of the em ergency department work-up for chest pain with him. Impression & Plan Chest pain, Abnormal EKG Discharge Plan Visit Data *Final* Discharge Date/Time: 05/20/19 17:34 Chief Complaint: Cardiac Assessment Stated Complaint: BURNING/PAIN IN CHEST & PAIN DOWN BACK OF ARMS ED Provider: Gurinder Díaz Discharge Problem: Chest pain, Abnormal EKG Patient Disposition: Admitted As Inpatient Discharge Instructions Interventions: ED Discharge Assessment Last Done: 05/20/19 17:34 The scribe's documentation has been prepared under my direction and personally reviewed by me in its entirety. I confirm that the note above accurately reflects all work, treatment, procedures, and medical decision making performed by me.
[2019-05-20] MEDS: NITROGLYCERIN SL 0.4 MG/TAB TAB SL PRN ×2 (22:09→22:14)
[2019-05-20] MEDS ORDERED: carvediloL 3.125 MG TAB PO ONE (22:22)
[2019-05-20] MEDS ORDERED: ASPIRIN 81 MG CHEW ONE (22:31)
[2019-05-20] MEDS ORDERED: ASPIRIN 81 MG CHEW PO STA (22:38)
[2019-05-20] MEDS ORDERED: ASPIRIN 81 MG CHEW PO ONE (22:45)
[2019-05-20] MEDS: NITROGLYCERIN 2% OINTMENT 30GM TUBE EXT SCH (22:45)
[2019-05-20] MEDS ORDERED: ASPIRIN 81 MG CHEW PO SCH (22:45)
[2019-05-21] MEDS: NITROGLYCERIN 2% OINTMENT 30GM TUBE EXT SCH ×4 (04:49→23:35)
[2019-05-21] MEDS ORDERED: MAGNESIUM HYDROXIDE SUSP 30 ML UDC PO PRN (05:00)
[2019-05-21] MEDS ORDERED: POLYETHYLENE (MIRALAX) 17 GM PACK PO PRN (05:00)
[2019-05-21] MEDS ORDERED: ALUMINUM/MAGNESIUM SUSP 30 ML UDC PO PRN (05:00)
[2019-05-21] MEDS: ACETAMINOPHEN 325 MG TAB PO PRN (06:00)
[2019-05-21] MEDS ORDERED: CYANOCOBALAMIN 500 MCG TABLET (VITAMIN B-12) PO SCH (09:00)
[2019-05-21] MEDS: CHOLECALCIFEROL 1,000 UNITS TAB PO SCH (09:00)
[2019-05-21] MEDS: LANSOPRAZOLE 30 MG SOLTAB PO SCH (09:00)
[2019-05-21] MEDS: carvediloL 12.5 MG TAB PO SCH ×2 (09:00→20:31)
[2019-05-21] MEDS: CILOSTAZOL 100 MG TAB PO SCH ×2 (09:00→20:32)
[2019-05-21] MEDS: MULTIVITAMIN TAB PO SCH (09:00)
[2019-05-21] MEDS: FLUTICASONE PROPIONATE NA SPR 16 GM BTL SCH (09:00)
[2019-05-21] MEDS: ASPIRIN 81 MG ECTAB PO SCH (09:00)
[2019-05-21] MEDS ORDERED: MIDAZOLAM HCL 1 MG/ML 2ML VIAL ONE ×3 (12:35→13:32)
[2019-05-21] MEDS ORDERED: fentaNYL citrate 100 MCG/2 ML VIAL ONE ×2 (12:35→13:01)
[2019-05-21] MEDS ORDERED: HEPARIN (PORCINE) 1000 UNIT/ML 10 ML (CATH LAB USE ONLY) ONE ×2 (12:35→13:36)
[2019-05-21] MEDS ORDERED: NITROGLYCERIN/D5W 100MCG/ML 20ML SYR ONE (12:36)
[2019-05-21] MEDS ORDERED: ONDANSETRON INJ 2 MG/ML 2 ML VIAL ONE (13:31)
[2019-05-21] MEDS ORDERED: PRASugrel TAB 10 MG TAB PO ONE (14:03)
--- NOTE | 2019-05-21 14:09 | Cardiology Consultation ---
Date of Consultation May 21, 2019 Assessment & Plan (1) Chest pain: 2. History of coronary artery disease post prior stenting to LAD, circumflex, RCA 3. PAD post stenting to right SFA, known left SFA occlusion with claudication 4. Hypertension 5. Dyslipidemia 6. Statin intolerance Patient with intermittent chest pain at rest and exertional symptoms over the last several days. Troponin at upper limits of normal. Suspicion for ACS is elevated and feel further risk stratification warranted in the setting of patient's known multivessel CAD. We discussed options including stress test versus repeat catheterization. Patient prefers early invasive approach. Plan for cardiac catheterization via right radial artery later today. Further recommendations pending findings. History of Present Illness Attending Physician: Kareen Dennison MD History of Present Illness Mr. Roy is a pleasant 69-year-old man with a history of hypertension, dyslipidemia, ongoing tobacco abuse, degenerative disc disease, multivessel coronary artery disease post multivessel stenting (prior stents to RCA, most recently stent to LAD, circumflex in 2012) and PAD post RT SFA stenting 02/2019 admitted with intermittent chest pain. Patient was seen by me 3 weeks ago for follow-up regarding prior SFA stenting. Presented to the ED yesterday after multiple episodes of chest pain initially occurring at rest then more consistently with exertion. Several episodes of chest pain overnight since admission. Troponin trended up to 0.045. EKG unremarkable. Continues to smoke 1 pack/day has been doing for decades. Allergies Allergy/AdvReac Type Severity Reaction Status Date / Time meclizine Allergy Severe UNKNOWN Verified 05/20/19 14:21 niacin Allergy Severe ANAPHYLAXIS Verified 05/20/19 14:21 TIFFANIE Inhibitors Allergy Intermediate UNKNOWN Verified 05/20/19 14:21 adhesive Allergy Mild REDNESS,CHARITY Verified 05/20/19 14:21 H pantoprazole Allergy Unknown TOOK TOO Verified 05/20/19 14:21 MUCH-UNKNOWN EFFECT codeine AdvReac Severe GI UPSET Verified 05/20/19 14:21 rofecoxib AdvReac Severe GI BLEED Verified 05/20/19 14:21 morphine AdvReac Mild LIGHT-HEADE Verified 05/20/19 14:21 D simvastatin AdvReac Mild RHABDOMOLYS Verified 05/20/19 18:44 IS solifenacin AdvReac Unknown DIDN'T WORK Verified 05/20/19 14:21 terbinafine [From Lamisil] AdvReac Unknown Unknown Unverified 05/20/19 14:21 Home Medications Home Medications Medication Instructions Recorded Confirmed Type amlodipine 5 mg PO QPM 01/14/19 05/20/19 History aspirin [Aspirin Low Dose] 81 mg PO QAM 01/14/19 05/20/19 History carvedilol 12.5 mg PO BID 01/14/19 05/20/19 History cholecalciferol (vitamin D3) 5,000 unit PO DAILY 01/14/19 05/20/19 History [Vitamin D3] nitroglycerin 0.4 mg SUBLINGUAL DIRECTED PRN 01/14/19 05/20/19 History omega-3 fatty acids-fish oil [Fish 1 cap PO BID 01/14/19 05/20/19 History Oil] omeprazole 20 mg PO QAM 01/14/19 05/20/19 History cyanocobalamin (vitamin B-12) 1,000 mcg PO DAILY 01/18/19 05/20/19 History [Vitamin B-12] cilostazol 100 mg tablet 100 mg PO BID 04/04/19 05/20/19 History evolocumab 140 mg/mL subcutaneous 140 mg SUBCUT UD ml 04/04/19 05/20/19 History pen injector fluticasone propionate 50 2 sprays INTRANASAL DAILY #1 gm 04/04/19 05/20/19 History mcg/actuation nasal spray,suspension multivitamin tablet 1 tab PO DAILY 04/04/19 05/20/19 History mupirocin 2 % topical ointment 1 appln TOP BID 04/04/19 05/20/19 History Patient History Medical History BPH (benign prostatic hypertrophy) (Chronic) PVD (peripheral vascular disease) (Chronic) Tobacco abuse (Chronic) 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) Fatigue (Acute) Low back pain (Acute) Degenerative disc disease, cervical (Acute) Lightheadedness (Resolved) Colitis (Acute) Inguinal hernia (Acute) Umbilical hernia (Acute) Chest pain (Resolved) Chest pain (Resolved) Chest pain (Resolved) Disequilibrium (Resolved) Lumbar paraspinal muscle spasm (Resolved) Proctitis (Resolved) Weakness (Resolved) Surgical History History of arthroscopic knee surgery (Acute) bilateral knees History of percutaneous coronary intervention Family History Other No pertinent family history Social History Preferred Language: Bruneian Communication Ability: Effective Directory Operator Required: No Beliefs That Will Affect Care: None marital status: Current Living Situation: Spouse current occupational status: retired Feels Safe at Home: Yes Smoking Status: Current every day smoker Tobacco Type: cigarettes ; packs per day: 1 ; Cigarettes Per Day: 20 ; Second Hand Exposure: No ; Hx Alcohol Use: Yes Hx Substance Use: No Review of Systems Review of Systems: All systems reviewed & are unremarkable except as noted in HPI & below Physical Exam Physical Exam: General: Comfortable, no acute distress Eyes: Sclerae anicteric, extraocular movements intact HENT: Oropharynx clear mucous membranes moist Neck: Normal carotid upstrokes, no bruits. No JVD. Lungs: Clear to auscultation bilaterally, no rhonchi or wheezes Cardiac: Regular rate and rhythm, no murmurs, rubs or gallops. Vascular: 2+ radial bilaterally Abdomen: Soft, nontender, nondistended, positive bowel sounds. Extremities: Well perfused, no peripheral edema Skin: No rashes or lesions. Neuro: Nonfocal Psych: Alert orient x3, normal affect and mood Results & Data Vital Signs (Past 12 Hours) Vital Signs Temp Pulse Pulse Resp BP Pulse Ox 05/21/19 12:00 97.7 F 69 16 177/72 H 94 05/21/19 08:00 65 05/21/19 07:24 97.7 F 67 20 142/68 H 94 05/21/19 04:42 98.6 F 68 20 128/67 96 05/21/19 04:01 84 PG Care Time/CCT Total # of Minutes Spent Total Time Spent with Patient: Total time spent is greater than 50% in coordination of care (as documented) at patient's floor/unit and/or counseling patient:
--- NOTE | 2019-05-21 14:09 | Pre Anesthesia Assessment ---
Date of Service May 21, 2019 Pre Sedation Assessment Vital Signs Temp Pulse Pulse Resp BP BP BP 05/21/19 12:00 97.7 F 69 16 177/72 H 05/21/19 08:00 65 05/21/19 07:24 97.7 F 67 20 142/68 H 05/21/19 04:42 98.6 F 68 20 128/67 05/21/19 04:01 84 05/21/19 00:42 98.1 F 73 19 127/56 L 05/20/19 20:11 97.9 F 66 19 149/77 H 05/20/19 17:37 97.9 F 66 18 168/80 H 05/20/19 16:10 67 20 05/20/19 16:00 69 17 121/53 L 05/20/19 15:50 64 14 05/20/19 15:40 83 18 05/20/19 15:30 78 17 149/81 H 05/20/19 15:20 83 16 05/20/19 15:10 75 16 05/20/19 15:00 79 24 180/86 H 05/20/19 14:50 81 33 H 05/20/19 14:40 75 19 05/20/19 14:37 83 20 05/20/19 14:32 84 20 176/84 H Pulse Ox 05/21/19 12:00 94 05/21/19 08:00 05/21/19 07:24 94 05/21/19 04:42 96 05/21/19 04:01 05/21/19 00:42 98 05/20/19 20:11 96 05/20/19 17:37 95 05/20/19 16:10 97 05/20/19 16:00 92 05/20/19 15:50 95 05/20/19 15:40 95 05/20/19 15:30 93 05/20/19 15:20 95 05/20/19 15:10 98 05/20/19 15:00 98 05/20/19 14:50 98 05/20/19 14:40 98 05/20/19 14:37 98 05/20/19 14:32 98 Cardiovascular RRR, no murmur, no edema Respiratory normal respiratory effort, lungs clear to auscultation Pre-Sedation Airway Assessment Smoking Status: Current every day smoker Hx Sleep Apnea: No Hx Difficult Intubation: No Short, Thick Neck: No Thyromental Distance: > or= 3.5 Finger Breadths Oral Cavity: + WNL Mallampati Class: II ASA: ASA3 Procedure Planning Contraindications for Sedation: none Current Medications Reviewed: Yes Notes The planned sedation has been discussed with the patient. Informed Consent was obtained. I have identified the patient, determined the appropriateness of sedation and have assessed the patient immediately prior to the procedure. All medicine(s) and interventions are by my order.
--- NOTE | 2019-05-21 14:10 | Post Anesthesia Assessment ---
Date of Service May 21, 2019 Post Sedation Assessment Vital Signs Temp Pulse Pulse Resp BP BP BP 05/21/19 12:00 97.7 F 69 16 177/72 H 05/21/19 08:00 65 05/21/19 07:24 97.7 F 67 20 142/68 H 05/21/19 04:42 98.6 F 68 20 128/67 05/21/19 04:01 84 05/21/19 00:42 98.1 F 73 19 127/56 L 05/20/19 20:11 97.9 F 66 19 149/77 H 05/20/19 17:37 97.9 F 66 18 168/80 H 05/20/19 16:10 67 20 05/20/19 16:00 69 17 121/53 L 05/20/19 15:50 64 14 05/20/19 15:40 83 18 05/20/19 15:30 78 17 149/81 H 05/20/19 15:20 83 16 05/20/19 15:10 75 16 05/20/19 15:00 79 24 180/86 H 05/20/19 14:50 81 33 H 05/20/19 14:40 75 19 05/20/19 14:37 83 20 05/20/19 14:32 84 20 176/84 H Pulse Ox 05/21/19 12:00 94 05/21/19 08:00 05/21/19 07:24 94 05/21/19 04:42 96 05/21/19 04:01 05/21/19 00:42 98 05/20/19 20:11 96 05/20/19 17:37 95 05/20/19 16:10 97 05/20/19 16:00 92 05/20/19 15:50 95 05/20/19 15:40 95 05/20/19 15:30 93 05/20/19 15:20 95 05/20/19 15:10 98 05/20/19 15:00 98 05/20/19 14:50 98 05/20/19 14:40 98 05/20/19 14:37 98 05/20/19 14:32 98 Recovery Score Activity: Moves 4 extremities Respiration: Deep Breath/Cough Circulation: +/-20% PreAnes Value Consciousness: Fully Awake Oxygen Saturation: O2 needed for >90% Discharge Sedation Level of Care: Fast Track Phase II Post Sedation Plan On clinical assessment, the patient appears to have tolerated the sedation without complications. Patient is recovering as anticipated. Patient will continue to be monitored by nursing and may be discharged when sedation discharge criteria are met per below protocol. Upon Completions of procedure and additional 15 minutes continue every 5 minute vital signs and the P.A.R. score; then discharge to a Phase I or Fast Track to Phase II per the following guidelines: * Discharge Patient to appropriate Phase II area if PAR is 8 or greater or return to pre- procedure baseline. The post - procedure orders will be as directed. * If PAR score is less than 8 or not return to pre-procedure baseline then patient will follow Phase I monitoring till PAR is reached for Phase II. The Phase I may be done in procedure room or may call to secure a Phase I area. * If naloxone or flumazenil are used for reversal, hold in Phase I for continued monitoring from when last reversal dose was given for a minimum of 60 minutes or longer pending the nurse and/or physician discretion of patient condition before discharge to Phase II. Please call the Sedation Physician to re-evaluate and complete post-note for discharge to Phase II area. Do NOT discharge from procedure sedation or Phase 1 until post- sedation evaluation note is complete by procedure /sedation MD Sedation Discharge Instructions to be given to the patient at discharge to home.
[2019-05-21] MEDS ORDERED: ONDANSETRON INJ 2 MG/ML 2 ML VIAL IV PRN (14:25)
--- NOTE | 2019-05-21 14:25 | Cardiac Catheterization ---
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 Cardiac Status Clinical evaluation leading to the procedure CAD Presenation: Unstable angina Anginal Classification: CCS IV Heart Failure: No Cardiogenic Shock within 24 Hours: No Cardiac Arrest within 24 Hours: No Imaging Studies Past 6 Months: No Stress Studies Past 6 Months: No Diagnostic Physicians Name: Kenneth Randle MD Status: Elective Closure Device Percutaneous Entry Location: Femoral Closure Device: Angio-Seal Recommendations: PCI without planned CABG PCI Indication: Unstable Angina Lesion Segment Name: Mid RCA Culprit Artery: Yes Stenosis Prior to Rx (%): 90 Chronic Total Occlusion: No IVUS: No FFR: No Pre-Procedure IRENE Flow: 3 Previously Treated Lesion: Timeframe: greater than 2 years Treated with Stent: Yes In-Stent Restenosis: Yes Stent Type: CHAD Yes Lesion Complexity: Non-High/Non-C Lesion Length (mm): 15 Thrombus Present: No Bifurcation Lesion: No Guidewire Across Lesion: Stenosis Post-Procedure (%): 0 Post-Procedure IRENE Flow: 3 Devices(s) Deployed: Yes Yes Intraprocedure Events Significant Disection: No Perforation: No Cardiac Cath Procedure Full Procedure Date May 21, 2019 Pre-Procedure Diagnosis Pre-Procedure Diagnosis: Acute Coronary Syndrome AUC Score AUC Score: 7 Post-Procedure Diagnosis Post-Procedure Diagnosis: Severe CAD, Successful PCI and Normal Intracardiac P ressures Procedure(s) Performed Procedure(s) Performed: Coronary Angiography, Left Heart Cath, Drug Eluting Stent, Femoral Artery Angiography and Radial Artery Angiography Chef Kenneth Randle MD Ell Teacher(s) Avina Estimated Blood Loss Estimated Blood Loss: 15 Medication(s) Medication(s): Fentanyl, Heparin, Lidocaine 1%, Nicardipine, Nitroglycerin and Versed Medication(s): Prasugrel Summary of Findings Indication: Suspected acute coronary syndrome Access: 6 Fr right radial artery (right radial artery loop with significant spasm and pain) converted to right SNOWBOARD DESIGNER with 6 Fr sheath Catheters: [place], JL4, JR4, JR4 guide Findings: LM -moderate caliber, 20% distal stenosis LAD -moderate caliber vessel, patent mid segment stent with 40 to 50% in-stent restenosis, distal luminal irregularities as tapers to apex. Small caliber first diagonal with 90% mid segment stenosis. Circumflex -moderate caliber, 20% proximal, widely patent mid segment stents into OM1. Inferior branch of OM1 with 90% focal stenosis. RCA -large caliber vessel, dominant, mid segment is stented with 90+% focal in- stent restenosis at takeoff of acute marginal. Distal luminal irregularities, 50% ostial right PDA stenosis. LVEDP -17 -- PCI -- Antithrombotic therapy: Heparin, Prasugrel Procedure: RCA cannulated with JR4 guide BMW wire passed across lesion into distal vessel Mid RCA lesion predilated with 3.0 compliant balloon Dilated lesion stented with 4.5 x 18 mm Paresh drug-eluting stent Stent post-dilated with 5.0 noncompliant balloon IC vasodilators administered for spasm Post procedure IRENE 3 flow, stent well expanded with minimal residual stenosis. No flow noted in acute marginal branch with moderate residual chest pain after procedure. Arterial Closure: TR band, Angio-Seal Summary: 1. Severe multi-vessel coronary artery disease -90% mid RCA in-stent restenosis 40 to 50% mid LAD in-stent restenosis. Small first diagonal with 90% stenosis Mid circumflex stents widely patent. Small inferior branch of OM1 with 90% stenosis 2. Normal intracardiac filling pressure 3. Successful PCI of mid RCA in-stent restenosis with single drug-eluting stent (4.5 x 18 mm Parker; postdilated with 5.0 NC). Recommendations: To PCU for continued monitoring Loaded with Prasugrel 60 mg in label machine operator Continue dual-antiplatelet therapy for at least one year Continue ASCVD risk factor modification Consult cardiac Rehab Medical management of small diagonal, OM branch disease. Left SFA intervention scheduled for next month. Hemodynamics Rest Ao:: 148/63/97 Final Ao: 96/49/67 LV: 171/17 Recommendations Recommendations: PCI without planned CABG Specimens Specimens: None Radiation Exposure (mGy) 1629 Contrast (mls) 100 Fluids (cc crystalloids) Fluids (cc crystalloids): 100 Drains Drains: none Anesthesia moderate Procedural Complication(s) None Disposition PCU I attest to the content of the Intraoperative Record and any orders documented t herein. Any exceptions are noted below.
[2019-05-21] MEDS ORDERED: SODIUM CHLORIDE 0.9% 1000ML 1,000 ML IV SCH (14:30)
[2019-05-21] MEDS: NITROGLYCERIN SL 0.4 MG/TAB TAB SL PRN ×2 (14:33→14:38)
[2019-05-21] MEDS: fentaNYL citrate 100 MCG/2 ML VIAL IV PRN ×4 (14:46→23:36)
--- NOTE | 2019-05-21 15:00 | Hospitalist Progress Note ---
Date of Service May 21, 2019 Assessment & Plan (1) Chest pain, exertional: Patient had cardiac catheterization today for unstable angina per Dr. Randle. Findings: LM -moderate caliber, 20% distal stenosis LAD -moderate caliber vessel, patent mid segment stent with 40 to 50% in-stent restenosis, distal luminal irregularities as tapers to apex. Small caliber first diagonal with 90% mid segment stenosis. Circumflex -moderate caliber, 20% proximal, widely patent mid segment stents into OM1. Inferior branch of OM1 with 90% focal stenosis. RCA -large caliber vessel, dominant, mid segment is stented with 90+% focal in- stent restenosis at takeoff of acute marginal. Distal luminal irregularities, 50% ostial right PDA stenosis. Tolerated procedure well. Patient was heparinized. Recommended to continue PCU monitoring. Loaded with Parsugrel, continue dual antoplatlet theray for at least 1 year. Continue ACS CVD risk factor modification. Consult cardiac rehab. (2) Hyperlipidemia: Continue home meds (3) Heart disease: Resume home medication. (4) Benign hypertension: We will monitor blood pressure. Continue home medications. (5) CAD (coronary artery disease): We will monitor the patient on telemetry floor. Continue aspirin. (6) GERD (gastroesophageal reflux disease): Continue PPI. (7) PVD (peripheral vascular disease): Status post stenting of right leg. Patient supposed to go for left leg stenting next month. Continue cilostazol (8) Tobacco abuse: Smoking cessation advised. No intention to quit smoking order to use nicotine patch. (9) Low back pain: They will continue home medicine Present on Admission?: Yes (10) S/P coronary artery stent placement: Continue dual antiplatelet anticoagulation Present on Admission?: Yes Subjective Patient seen and examined at the bedside. Status post cardiac catheterization by Dr. Randle. Patient denies fever chills chest pain shortness of breath abdominal pain frequency urgency. Patient tolerated procedure well. Review of Systems Review of Systems: All systems reviewed & are unremarkable except as noted in HPI & below Physical Exam Constitutional: WD/WN, vitals as above well developed Eyes: PERRL, conjunctivae normal, anicteric sclerae ENMT: external ear and nose normal, oropharynx normal Neck: trachea midline, no thyromegaly Respiratory: normal respiratory effort, lungs clear to auscultation Cardiovascular: RRR, no murmur, no edema Gastrointestinal (Abdomen): normal bowel sounds, soft, nontender, no hepatosplenomegaly Musculoskeletal: no cyanosis or clubbing, extremities motor strength 5/5 Skin: no rashes, warm and dry Neurologic: patellar DTR's 2+ bilat, sensation intact Psychiatric: A+Ox3, euthymic affect Lymphatic: no cervical or axillary lymphadenopathy Results & Data Vital Signs (Past 12 Hours) Vital Signs Temp Pulse Pulse Resp BP BP Pulse Ox 05/21/19 14:36 73 15 145/74 H 97 05/21/19 14:16 36.5 C 65 18 137/70 95 05/21/19 12:00 36.5 C 69 16 177/72 H 94 05/21/19 08:00 65 05/21/19 07:24 36.5 C 67 20 142/68 H 94 05/21/19 04:42 37.0 C 68 20 128/67 96 05/21/19 04:01 84 PG Care Time/CCT Total # of Minutes Spent Total Time Spent with Patient: Total time spent is greater than 50% in coordination of care (as documented) at patient's floor/unit and/or counseling patient:
[2019-05-21] MEDS ORDERED: NITROGLYCERIN 2% OINTMENT 30GM TUBE EXT SCH (16:00)
[2019-05-21] MEDS ORDERED: CLOPIDOGREL BISULFATE 300 MG TAB PO STA (18:37)
[2019-05-21] MEDS: AMLODIPINE BESYLATE 5 MG TAB PO SCH (20:31)
[2019-05-22 03:50] VITALS: BP 133/66; PULSE 76; TEMP 98.2; O2SAT 95
[2019-05-22] MEDS: fentaNYL citrate 100 MCG/2 ML VIAL IV PRN (03:50)
[2019-05-22] MEDS: NITROGLYCERIN 2% OINTMENT 30GM TUBE EXT SCH ×2 (06:05→11:42)
[2019-05-22] MEDS: ACETAMINOPHEN 325 MG TAB PO PRN (07:47)
[2019-05-22] MEDS: MULTIVITAMIN TAB PO SCH (07:48)
[2019-05-22] MEDS: ASPIRIN 81 MG ECTAB PO SCH (07:48)
[2019-05-22] MEDS: LANSOPRAZOLE 30 MG SOLTAB PO SCH (07:48)
[2019-05-22] MEDS: carvediloL 12.5 MG TAB PO SCH (07:48)
[2019-05-22] MEDS: CHOLECALCIFEROL 1,000 UNITS TAB PO SCH (07:48)
[2019-05-22] MEDS: CILOSTAZOL 100 MG TAB PO SCH (07:49)
[2019-05-22] MEDS: FLUTICASONE PROPIONATE NA SPR 16 GM BTL SCH (07:59)
[2019-05-22] MEDS ORDERED: CLOPIDOGREL BISULFATE 75 MG TAB PO SCH (09:00)
[2019-05-22] MEDS ORDERED: PRASugrel TAB 10 MG TAB PO SCH (09:00)
--- NOTE | 2019-05-22 09:08 | Cardiology Progress Note ---
Date of Service May 22, 2019 Assessment & Plan (1) Acute coronary syndrome: 2. Multivessel coronary artery diseasepatent LAD, circumflex stents. Branch vessel disease in diagonal, OM 3. PAD post stenting to right SFA, known left SFA occlusion with claudication 4. Hypertension 5. Dyslipidemia 6. Statin intolerance 7. Ongoing tobacco use Patient stable post PCI yesterday. Chest pain is resolved. Hemodynamically and electrically stable. No access site complications. Discontinue Nitropatch. Up walking halls later this morning. Continue DAPT with aspirin, Prasugrel Continue current carvedilol, amlodipine Continue PPI Revisit PCSK9 inhibitor as an outpatient and will continue to encourage smoking cessation Continue cilostazol, plan for left SFA intervention next month From a cardiac standpoint okay with discharge later today if chest pain-free when walking halls. Follow-up with me in 2 weeks. Subjective Patient underwent PCI to RCA in-stent restenosis yesterday. Residual complicated by loss of a acute marginal and post procedure chest pain. Pain is largely resolved. Does still have some abdominal discomfort which is different than chest pain he had yesterday. Denies any shortness of breath. Does report ongoing headache with nitro patch in place. Telemetry reviewedno events. Review of Systems Review of Systems: All systems reviewed & are unremarkable except as noted in HPI & below Physical Exam Physical Exam: General: Comfortable, no acute distress HEENT: Sclerae anicteric, mucous membranes moist Lungs: Clear to auscultation bilaterally, no rhonchi or wheezes Cardiac: Regular rate and rhythm, no murmurs. Abdomen: Soft, nontender, nondistended, positive bowel sounds. Extremities: Warm, well perfused, no edema. Right radial artery access site with mild ecchymosis, no hematoma. Distal pulse and sensation intact. Right GLOBAL PROJECT MANAGER access site with no appreciable hematoma. Pulse intact. Skin: No rashes or lesions. Neuro: Nonfocal Psych: Alert orient x3, normal affect and mood Results & Data Vital Signs (Past 12 Hours) Vital Signs Temp Pulse Pulse Resp BP BP Pulse Ox 05/22/19 03:47 98.2 F 76 20 133/66 95 05/22/19 01:08 84 05/21/19 23:09 97.7 F 85 24 143/80 H 93 PG Care Time/CCT Total # of Minutes Spent Total Time Spent with Patient: Total time spent is greater than 50% in coordination of care (as documented) at patient's floor/unit and/or counseling patient:
--- NOTE | 2019-05-22 09:16 | Hospitalist Progress Note ---
Date of Service May 22, 2019 Assessment & Plan (1) Chest pain, exertional: Patient is eager to go home. Chest pain resolved. Abdominal discomfort also resolved. Patient will follow up with Dr. Randle as an outpatient in the next 2 weeks. Findings: LM -moderate caliber, 20% distal stenosis LAD -moderate caliber vessel, patent mid segment stent with 40 to 50% in-stent restenosis, distal luminal irregularities as tapers to apex. Small caliber first diagonal with 90% mid segment stenosis. Circumflex -moderate caliber, 20% proximal, widely patent mid segment stents into OM1. Inferior branch of OM1 with 90% focal stenosis. RCA -large caliber vessel, dominant, mid segment is stented with 90+% focal in- stent restenosis at takeoff of acute marginal. Distal luminal irregularities, 50% ostial right PDA stenosis. Tolerated procedure well. Patient was heparinized. Recommended to continue PCU monitoring. Loaded with Parsugrel, continue dual antiplatelet therapy for at least 1 year. Continue ACS CVD risk factor modification. Consult cardiac rehab. (2) Hyperlipidemia: Continue home meds (3) Heart disease: Resume home medication. (4) Benign hypertension: We will monitor blood pressure. Continue home medications. (5) CAD (coronary artery disease): We will monitor the patient on telemetry floor. Continue aspirin. (6) GERD (gastroesophageal reflux disease): Continue PPI. (7) PVD (peripheral vascular disease): Status post stenting of right leg. Patient supposed to go for left leg stenting next month. Continue cilostazol (8) Tobacco abuse: Smoking cessation advised. No intention to quit smoking order to use nicotine patch. (9) Low back pain: They will continue home medicine (10) S/P coronary artery stent placement: Continue dual antiplatelet anticoagulation Subjective Patient seen and examined at the bedside. No acute event overnight. Afebrile. Chest pain improved with nitroglycerin patch. Patient underwent PCI to RCA in- stent restenosis yesterday. Residual complicated by loss of a acute marginal and post procedure chest pain. Chest pain resolved. Patient reports having some abdominal discomfort this morning but that is improving. Patient denies fever chills chest pain shortness of breath abdominal pain frequency urgency nausea vomiting diarrhea dysuria hematuria. Telemetry reviewedno events. Review of Systems Review of Systems: All systems reviewed & are unremarkable except as noted in HPI & below Physical Exam Constitutional: WD/WN, vitals as above well developed Eyes: PERRL, conjunctivae normal, anicteric sclerae ENMT: external ear and nose normal, oropharynx normal Neck: trachea midline, no thyromegaly Respiratory: normal respiratory effort, lungs clear to auscultation Cardiovascular: RRR, no murmur, no edema Gastrointestinal (Abdomen): normal bowel sounds, soft, nontender, no hepatosplenomegaly Musculoskeletal: no cyanosis or clubbing, extremities motor strength 5/5 Skin: no rashes, warm and dry Neurologic: patellar DTR's 2+ bilat, sensation intact Psychiatric: A+Ox3, euthymic affect Lymphatic: no cervical or axillary lymphadenopathy Results & Data Vital Signs (Past 12 Hours) Vital Signs Temp Pulse Pulse Resp BP BP Pulse Ox 05/22/19 03:47 36.8 C 76 20 133/66 95 05/22/19 01:08 84 05/21/19 23:09 36.5 C 85 24 143/80 H 93 PG Care Time/CCT Total # of Minutes Spent Total Time Spent with Patient: Total time spent is greater than 50% in coordination of care (as documented) at patient's floor/unit and/or counseling patient:
--- NOTE | 2019-05-22 10:46 | Discharge Summary ---
Date of Service May 22, 2019 Admission HPI Per Admitting Provider The patient is 69-year-old male with history of CAD, status post cardiac stenting. He is complaining of intermittent episodes of chest pain for last 3 days. No significant relieving or precipitating factor. He rates it as 8-9 out of 10 intensity. The first set of EKG cardiac enzymes is negative. He will be admitted under observation for further evaluation and management. No palpitation. No shortness of breath. No cough sputum hemoptysis. No swelling of the legs. He has history of PAD status post stenting of the right leg and continues to smoke. Principal Diagnosis no Discharge Exam Constitutional WD/WN, vitals as above well developed Eyes PERRL, conjunctivae normal, anicteric sclerae ENMT external ear and nose normal, oropharynx normal Neck trachea midline, no thyromegaly Respiratory normal respiratory effort, lungs clear to auscultation Cardiovascular RRR, no murmur, no edema Gastrointestinal (Abdomen) normal bowel sounds, soft, nontender, no hepatosplenomegaly Musculoskeletal no cyanosis or clubbing, extremities motor strength 5/5 Skin no rashes, warm and dry Neurologic patellar DTR's 2+ bilat, sensation intact Psychiatric A+Ox3, euthymic affect Lymphatic no cervical or axillary lymphadenopathy Discharge Data Allergies Allergy/AdvReac Type Severity Reaction Status Date / Time meclizine Allergy Severe UNKNOWN Verified 05/20/19 14:21 niacin Allergy Severe ANAPHYLAXIS Verified 05/20/19 14:21 TIFFANIE Inhibitors Allergy Intermediate UNKNOWN Verified 05/20/19 14:21 adhesive Allergy Mild REDNESS,CHARITY Verified 05/20/19 14:21 H pantoprazole Allergy Unknown TOOK TOO Verified 05/20/19 14:21 MUCH-UNKNOWN EFFECT codeine AdvReac Severe GI UPSET Verified 05/20/19 14:21 rofecoxib AdvReac Severe GI BLEED Verified 05/20/19 14:21 morphine AdvReac Mild LIGHT-HEADE Verified 05/20/19 14:21 D simvastatin AdvReac Mild RHABDOMOLYS Verified 05/20/19 18:44 IS solifenacin AdvReac Unknown DIDN'T WORK Verified 05/20/19 14:21 terbinafine [From Lamisil] AdvReac Unknown Unknown Unverified 05/20/19 14:21 Consultations 05/20/19 16:35 ED Decision to Admit Stat 05/21/19 09:58 Consult Cardiology Routine 05/22/19 09:16 Consult Cardiac Rehabilitation Routine Procedures Performed Operation Date: 05/21/19 12:15 Actual Procedures p Drug Eluting Stent SGl Vessel - Doug Randle MD p Cath, Left with Cors and Vent - Doug Randle MD s Cineradiography w/Routine Exam - Doug Randle MD Ordered Studies 05/21/19 12:11 CL Cath Imgs for PACS use only Routine Hospital Course (1) Chest pain, exertional: Patient is eager to go home. Chest pain resolved. Abdominal discomfort also resolved. Patient will follow up with Dr. Randle as an outpatient in the next 2 weeks. Findings: LM -moderate caliber, 20% distal stenosis LAD -moderate caliber vessel, patent mid segment stent with 40 to 50% in-stent restenosis, distal luminal irregularities as tapers to apex. Small caliber first diagonal with 90% mid segment stenosis. Circumflex -moderate caliber, 20% proximal, widely patent mid segment stents into OM1. Inferior branch of OM1 with 90% focal stenosis. RCA -large caliber vessel, dominant, mid segment is stented with 90+% focal in- stent restenosis at takeoff of acute marginal. Distal luminal irregularities, 50% ostial right PDA stenosis. Tolerated procedure well. Patient was heparinized. Recommended to continue PCU monitoring. Loaded with Parsugrel, continue dual antiplatelet therapy for at least 1 year. Continue ACS CVD risk factor modification. Consult cardiac rehab. (2) Hyperlipidemia: Continue home meds (3) Heart disease: Resume home medication. (4) Benign hypertension: We will monitor blood pressure. Continue home medications. (5) CAD (coronary artery disease): We will monitor the patient on telemetry floor. Continue aspirin. (6) GERD (gastroesophageal reflux disease): Continue PPI. (7) PVD (peripheral vascular disease): Status post stenting of right leg. Patient supposed to go for left leg st enting next month. Continue cilostazol (8) Tobacco abuse: Smoking cessation advised. No intention to quit smoking order to use nicotine patch. (9) Low back pain: They will continue home medicine (10) S/P coronary artery stent placement: Continue dual antiplatelet anticoagulation Total Time Total Time Spent Total Time Spent (In Minutes): over 30 min Discharge Plan Discharge Items Patient Disposition: Home - Self-Care Reason For Visit: CHEST PAIN Discharge Diagnosis: coronary artery disease, unstable angina Activity Comment: avoid going up and down stairs for 3 days,walking is permitted Lifting: Gradually increase as tolerated Lifting Comment: avoid lifting with the right hand for 3 days Bathing: Keep incision dry and May shower/bathe in 3 days Driving/Machine Use: Resume 1 day after discharge Non-emergency contact: Primary Care Provider Call non-emergency contact if: you have any medication questions, your symptoms worsen, your pain is not controlled, your pain is worsening, your pain is concerning for you, you have a fever and your rectal temperature is above 100.4 Follow-up/Referrals: Florence Abraham MD [Primary Care Provider] - 05/27/19 10:00 am (Please, follow up with Dr. Meléndez's associate, Mckenzie Huffman PA-C, on SundayMay 27 at 10:00 am. *If you need to change this appointment, call their office at [phone].) Doug Randle MD [Physician] - 06/03/19 10:00 am (Please, follow up at [facility] Cardiology Office with Dr. Randle on SundayJune 03 at 10:00 am. *The office is located in [address] of [facility]. This is the building next to the hospital. If you need to change this appointment, call the office at [phone].) Diet: Heart Healthy Addtl Attending Provider Instructions: Please follow up with rehabilitation case coordinator in finding PCP and follow up in 7 days. Pending Studies at Discharge: No Stand-Alone Forms: My [facility] Medications and DC Order Prescriptions: New prasugrel [Effient] 10 mg Tablet 10 mg PO QAM Qty: 30 RF: 0 nitroglycerin 0.4 mg tablet, sublingual 0.4 mg sublingual Q5M Qty: 100 RF: 0 baclofen 10 mg tablet 10 mg PO Q8H PRN (Reason: for back pain and muscle spasam) Qty: 14 RF: 0 Continued cilostazol 100 mg tablet 100 mg PO BID RF: 0 fluticasone propionate 50 mcg/actuation spray,suspension 2 sprays intranasal DAILY Qty: 1 RF: 0 multivitamin tablet 1 tab PO DAILY RF: 0 mupirocin 2 % ointment 1 appln TOP BID RF: 0 evolocumab 140 mg/mL pen injector 140 mg subcut UD RF: 0 carvedilol 12.5 mg tablet 12.5 mg PO BID RF: 0 amlodipine 5 mg tablet 5 mg PO QPM RF: 0 aspirin [Aspirin Low Dose] 81 mg Tablet,Delayed Release (Dr/Ec) 81 mg PO QAM RF: 0 omeprazole 20 mg capsule,delayed release(DR/EC) 20 mg PO QAM RF: 0 omega-3 fatty acids-fish oil [Fish Oil] 360-1,200 mg Capsule 1 cap PO BID RF: 0 cholecalciferol (vitamin D3) [Vitamin D3] 5,000 unit Tablet 5,000 unit PO DAILY RF: 0 cyanocobalamin (vitamin B-12) [Vitamin B-12] 1,000 mcg Tablet 1,000 mcg PO DAILY RF: 0 nitroglycerin 0.4 mg Tablet, Sublingual 0.4 mg sublingual DIRECTED PRN (Reason: Chest Pain) Qty: 100 RF: 0 Discharge Orders: Discharge Order (Routine); Ordered 05/22/19 Ordered By: Kareen Dennison Admission Data Admit Date/Time: 05/20/19 17:02 Attending Provider: Kareen Dennison Admit Provider: Ruben Saha Primary Care Provider: Florence Abraham V. Other Providers: Ruben Saha ; Doug Randle Other Interventions: Discharge Summary Assessment (RN) Last Done: 05/22/19 10:34
== END 2019-05-22 11:28 | disposition home or self-care (01) ==
LOC: ED 13:42 → 2E 13:42 → SUATTDRO 17:02 → 2E 17:34